=== PATIENT | female | born 1950 | race Caucasian/White ===

== ENCOUNTER 2021-03-23 09:51 | Outpatient (CLI) | payer MEDICARE, OTHER ==
[2021-03-23 15:31] LABS: CALCIUM 9.3 mg/dL (8.5-10.3); CREATININE 0.7 mg/dL (0.4-1.0); POTASSIUM 3.7 mmol/L (3.5-5.0)
== END 2021-03-23 09:52 | disposition home or self-care (01) ==
LOC: LAB.S 09:51
PROVIDERS: ATTEND Physician Assistant
DX: E87.1 Hypo-osmolality and hyponatremia (principal)
CPT/HCPCS: 36415; 80048

== ENCOUNTER 2021-06-10 07:50 | Day surgery (SDC) | payer MEDICARE, OTHER ==
[~2021-06-10 07:50] MED LIST: CYCLOPENTOLATE 1% OPHTH DROPS 2 ML ONE; KETOROLAC 0.45% OPHTH DROPS ONE; PHENYLEPHRINE 2.5% OPHTH 2 ML DROPS ONE; PROPARACAINE 0.5% OPHTH DROPS 15 ML ONE
[2021-06-10] MEDS ORDERED: LACTATED RINGERS 1,000 ML IV ONE ×2 (08:14→09:08)
[2021-06-10] MEDS ORDERED: MIDAZOLAM 2 MG/2 ML VIAL ONE (08:34)
[2021-06-10] MEDS ORDERED: fentaNYL 100 MCG/2 ML VIAL IVP PRN (08:42)
[2021-06-10] MEDS ORDERED: ePHEDrine 50 MG/ML VIAL IVP PRN (08:42)
[2021-06-10] MEDS ORDERED: ATROPINE ABBOJECT 1 MG/10 ML SYRINGE IVP PRN (08:42)
[2021-06-10] MEDS ORDERED: MORPHINE 2 MG/ML CARPUJECT IVP PRN (08:42)
[2021-06-10] MEDS ORDERED: HYDROmorphone 0.5 MG/0.5 ML SYRINGE IVP PRN (08:42)
[2021-06-10] MEDS ORDERED: NALOXONE 0.4 MG/ML VIAL IVP PRN (08:42)
[2021-06-10] MEDS ORDERED: ONDANSETRON 4 MG/2 ML VIAL IVP PRN (08:42)
[2021-06-10] MEDS ORDERED: METOCLOPRAMIDE 10 MG/2 ML VIAL IVP PRN (08:42)
--- NOTE | 2021-06-10 08:42 | ANESTHESIA ---
Pre-Anesthesia VS, & Labs - Diagnosis left eye cataract - Procedure left CATIOL Vital Signs: Temp Pulse Resp BP Pulse Ox 37.2 C 74 18 152/62 H 99 06/10/21 08:12 06/10/21 08:12 06/10/21 08:12 06/10/21 08:31 06/10/21 08:12 Height: 5 ft 2 in Weight (kg): 51 kg Body Mass Index: 20.5 BMI Classification: Healthy weight - NPO >8 hours - Is Patient ?: No - Lab Results Lab results reviewed: Yes Home Medications and Allergies Home Medications: Ambulatory Orders Atorvastatin [Lipitor] 20 mg PO DAILY 06/10/21 Atorvastatin [Lipitor] 20 mg PO DAILY 06/10/21 Allergies/Adverse Reactions: Allergies Allergy/AdvReac Type Severity Reaction Status Date / Time No Known Drug Allergies Allergy Verified 06/10/21 08:17 Anes History & Medical History - Anesthetic History Anesthesia Complications: reports: No previous complications Family history of Anesthesia Complications: Denies Family history of Malignant Hyperthermia: Denies - Medical History Cardiovascular: reports: None Pulmonary: reports: None Gastrointestinal: reports: None Urinary: reports: None Musculoskeletal: reports: None Endocrine/Autoimmune: reports: None Skin: reports: None - Surgical History Eyes Ears Nose Throat (EENT): reports: Tonsil/Adenoidectomy Gynecologic: reports: Other Exam General: Alert, Oriented x3, Cooperative, No acute distress Dental: WNL Mouth Openin Fingerbreadth Neck Mobility: Normal Mallampati classification: II Respiratory: Lungs clear, Normal breath sounds, No respiratory distress, No accessory muscle use Cardiovascular: Regular rate, Normal S1, Normal S2, No murmurs Plan Anesthesia Type: MAC Consent for Procedure(s) Verified and Reviewed: Yes Code Status: Attempt Resuscitation ASA classification: 2-Mild systemic disease Is this case an emergency?: No
[2021-06-10] MEDS ORDERED: TIMOLOL 0.5% OPHTH DROPS OPTH ONE (09:00)
[2021-06-10] MEDS ORDERED: TRIAMCIN/MOXIFLOX OPHTHALMIC 0.6 ML VIAL IO ONE ×2 (09:00→12:11)
[2021-06-10] MEDS ORDERED: BSS/LIDOCAINE/EPINEPHRINE 1 ML SYRINGE IO ONE (09:00)
[2021-06-10] MEDS ORDERED: VANCOMYCIN OPHTHALMI 8MG/0.8ML 8 MG/0.8 ML SYRINGE IO ONE ×2 (09:00→12:11)
[2021-06-10] MEDS ORDERED: EPINEPHrine 1 MG/ML AMP IR ONE (09:00)
[2021-06-10] MEDS ORDERED: BRIMONIDINE 0.2% OPHTH DROPS 5 ML OPTH ONE (09:00)
[2021-06-10] MEDS ORDERED: LACTATED RINGERS 1,000 ML IV SCH (09:00)
[2021-06-10] MEDS ORDERED: PROPARACAINE 0.5% OPHTH DROPS 15 ML EACHEYE ONE (09:00)
--- NOTE | 2021-06-10 09:14 | OPERATIVE REPORT ---
Operative Report - Other Other Information/Narrative: Date of Surgery: 06/10/21 Preop Dx: Visually significant cataract left eye. This was the first cataract surgery. Postop Dx: Same Procedure: Phacoemulsification with posterior chamber intraocular lens implant left eye Surgeon: Dr. Wilfredo Knight Anesthesia: Monitored anesthesia care Complications: None Operative Indications: This is a 70-year-old F with progressive vision loss in the left eye due to 2+ nuclear sclerotic, 1+ cortical, and vacuolar cataract. Best corrected visual acuity was 20/40 with glare to 20/300 vision in the left eye. Indications for surgery were: - Difficulty seeing words, closed captions, or game scores on TV - Difficulty driving at night because of headlights from other vehicles - Difficulty with glare or bright lights in any situation The patient was consented at length concerning the risks and benefits of cataract surgery after which the patient expressed a desire to proceed with surgery. Operative Procedure: The patient was taken into OR#3 and placed under monitored anesthesia care. A surgical time-out was conducted confirming correct patient, correct procedure, and correct surgical site. The patient was given topical anesthesia and then prepped and draped in the usual sterile fashion. The eye was entered at the 6 and 3 oclock positions. Intracameral Shugarcaine was injected into the anterior chamber followed by a dispersive viscoelastic. A continuous-tear curvilinear capsulorhexis was performed. The nucleus was hydrodissected and phacoemulsified. The cortex was evacuated using automated infusion and aspiration. A cohesive viscoelastic was injected into the capsular bag and a 19.5 diopter intraocular lens was inserted into the bag. Infusion and aspiration were used to evacuate the viscoelastic materials from the eye. The wounds were hydrated and the eye inflated to physiologic pressure using balanced salt solution. Approximately 0.25ml of a mixture of triamcinolone and moxifloxacin was injected trans-sclerally into the vitreous in the inferotemporal quadrant using a 30 gauge cannula. An additional 0.55ml of a mixture of triamcinolone, moxifloxacin, and vancomycin was injected subconjunctivally in the superior quadrant for infection and inflammation prophylaxis. Wound integrity was checked with Weck-Tianna sponges. The patient was taken from the operating room in good condition and given post-op instructions.
[2021-06-10 09:29] VITALS: BP 149/73
--- NOTE | 2021-06-10 11:21 | ANESTHESIA POST OP EVALUATION ---
Anesthesia Post Eval - Post Anesthesia Eval Vitals: Last Vital Signs Temp 36.5 C 06/10/21 09:28 Pulse 77 06/10/21 09:28 Resp 16 06/10/21 09:28 BP 149/73 H 06/10/21 09:28 Pulse Ox 97 06/10/21 09:28 CV Function Including HR & BP: Stable Pain Control: Satisfactory Nausea & Vomiting: Negative Mental Status: Baseline Respiratory Status: Airway Patent Hydration Status: Satisfactory Anesthesia Complications: None
[2021-06-10] MEDS ORDERED: TIMOLOL 0.5% OPHTH DROPS ONE (12:11)
[2021-06-10] MEDS ORDERED: BRIMONIDINE 0.2% OPHTH DROPS 5 ML ONE (12:11)
[2021-06-10] MEDS ORDERED: EPINEPHrine 1 MG/ML AMP ONE (12:11)
[2021-06-10] MEDS ORDERED: BSS/LIDOCAINE/EPINEPHRINE 1 ML SYRINGE ONE (12:11)
== END 2021-06-10 07:51 | disposition home or self-care (01) ==
LOC: SDS 07:50
PROVIDERS: ATTEND Ophthalmology
DX: H25.812 Combined forms of age-related cataract, left eye (principal); F17.200 Nicotine dependence, unspecified, uncomplicated; H91.90 Unspecified hearing loss, unspecified ear; Z79.82 Long term (current) use of aspirin; Z79.899 Other long term (current) drug therapy
CPT/HCPCS: 66984; A9270; J3490; J7120

== ENCOUNTER 2021-06-25 11:14 | Outpatient (CLI) | payer MEDICARE, OTHER ==
[2021-06-25 15:27] LABS: BASOPHILS % (AUTO) 0.5 %; EOSINOPHILS # (AUTO) 0.2 10^3/uL (0.0-0.7); EOSINOPHILS % (AUTO) 2.6 %; HCT - HEMATOCRIT 40.5 % (37.0-47.0); HGB - HEMOGLOBIN 14.2 g/dL (12.0-16.0); LYMPHOCYTES # (AUTO) 1.9 10^3/uL (1.5-3.5); LYMPHOCYTES % (AUTO) 23.8 %; MEAN CORPUSCULAR HEMOGLOBIN 33.3 pg (27.0-31.0); MEAN CORPUSCULAR HGB CONC 35.1 g/dL (32.0-36.0); MEAN CORPUSCULAR VOLUME 94.8 fL (81.0-99.0); MEAN PLATELET VOLUME 8.1 fL (7.9-10.8); MONOCYTES # (AUTO) 0.5 10^3/uL (0.0-1.0); MONOCYTES % (AUTO) 6.6 %; NEUTROPHILS # (AUTO) 5.4 10^3/uL (1.5-6.6); NEUTROPHILS % (AUTO) 66.3 %; PLT - PLATELET COUNT 524 10^3/uL (130-450); RED BLOOD COUNT 4.27 10^6/uL (4.20-5.40); RED CELL DISTRIBUTION WIDTH 12.9 % (12.0-15.0); WHITE BLOOD COUNT 8.2 x10^3/uL (4.8-10.8)
[2021-06-25 15:47] LABS: ALBUMIN 4.2 g/dL (3.2-5.5); ALBUMIN/GLOBULIN RATIO 1.3 (1.0-2.2); BILIRUBIN,TOTAL 0.6 mg/dL (0.2-1.0); CALCIUM 9.3 mg/dL (8.5-10.3); CREATININE 0.6 mg/dL (0.4-1.0); POTASSIUM 4.4 mmol/L (3.5-5.0); TOTAL PROTEIN 7.5 g/dL (6.7-8.2)
[2021-06-25 16:01] LABS: THYROID STIMULATING HORMONE 1.05 uIU/mL (0.34-5.60)
== END 2021-06-25 11:15 | disposition home or self-care (01) ==
LOC: LAB.S 11:14
PROVIDERS: ATTEND Physician Assistant
DX: L65.9 Nonscarring hair loss, unspecified (principal); R25.1 Tremor, unspecified; Z72.89 Other problems related to lifestyle
CPT/HCPCS: 36415; 80053; 84443; 85025

== ENCOUNTER 2021-07-08 08:40 | Day surgery (SDC) | payer MEDICARE, OTHER ==
[2021-07-08] MEDS ORDERED: LACTATED RINGERS 1,000 ML IV ONE ×2 (08:49→10:36)
--- NOTE | 2021-07-08 09:40 | ANESTHESIA ---
Pre-Anesthesia VS, & Labs - Diagnosis R cataract - Procedure R PhacoIOL Vital Signs: Temp Pulse Resp BP Pulse Ox 36.6 C 83 16 153/76 H 100 07/08/21 08:53 07/08/21 08:53 07/08/21 08:53 07/08/21 08:53 07/08/21 08:53 Height: 5 ft 2 in Weight (kg): 51.2 kg Body Mass Index: 20.6 BMI Classification: Healthy weight - NPO >8 hours - Is Patient ?: No Home Medications and Allergies Atorvastatin [Lipitor] 20 mg PO DAILY 06/10/21 Allergies/Adverse Reactions: Allergies Allergy/AdvReac Type Severity Reaction Status Date / Time No Known Drug Allergies Allergy Verified 06/10/21 08:17 Anes History & Medical History - Anesthetic History Anesthesia Complications: reports: No previous complications Family history of Anesthesia Complications: Denies Family history of Malignant Hyperthermia: Denies - Medical History Cardiovascular: reports: None Pulmonary: reports: None Gastrointestinal: reports: None Urinary: reports: None Musculoskeletal: reports: None Endocrine/Autoimmune: reports: None Skin: reports: None - Surgical History Eyes Ears Nose Throat (EENT): reports: Cataracts, Tonsil/Adenoidectomy Gynecologic: reports: Other Exam General: Alert, Oriented x3, Cooperative Dental: WNL Mouth Openin Fingerbreadth Neck Mobility: Normal Mallampati classification: II Thyromental Distance: 4-6 cm Respiratory: Lungs clear Cardiovascular: Regular rate Plan Anesthesia Type: MAC Consent for Procedure(s) Verified and Reviewed: Yes Code Status: Attempt Resuscitation ASA classification: 2-Mild systemic disease Is this case an emergency?: No
[2021-07-08] MEDS ORDERED: fentaNYL 100 MCG/2 ML VIAL ONE (09:50)
[2021-07-08] MEDS ORDERED: MIDAZOLAM 2 MG/2 ML VIAL ONE (09:50)
[2021-07-08] MEDS ORDERED: EPINEPHrine 1 MG/ML AMP IR ONE (10:17)
[2021-07-08] MEDS ORDERED: BRIMONIDINE 0.2% OPHTH DROPS 5 ML OPTH ONE (10:17)
[2021-07-08] MEDS ORDERED: TIMOLOL 0.5% OPHTH DROPS OPTH ONE (10:17)
[2021-07-08] MEDS ORDERED: PROPARACAINE 0.5% OPHTH DROPS 15 ML EACHEYE ONE (10:18)
[2021-07-08] MEDS ORDERED: BSS/LIDOCAINE/EPINEPHRINE 1 ML SYRINGE IO ONE (10:18)
[2021-07-08] MEDS ORDERED: TRIAMCIN/MOXIFLOX OPHTHALMIC 0.6 ML VIAL IO ONE ×2 (10:18→12:54)
--- NOTE | 2021-07-08 10:35 | OPERATIVE REPORT ---
Operative Report - Other Other Information/Narrative: Date of Surgery: 07/08/21 Preop Dx: Visually significant cataract right eye. Cataract surgery was performed in the left eye on . Postop Dx: Same Procedure: Phacoemulsification with posterior chamber intraocular lens implant right eye Surgeon: Dr. Wilfredo Knight Anesthesia: Monitored anesthesia care Complications: None Operative Indications: This is a 70-year-old F with progressive vision loss in the right eye due to 2+ nuclear sclerotic and vacuolar cataract. Best corrected visual acuity was 20/30 with glare to 20/100 vision in the right eye. Indications for surgery were: - Difficulty seeing words, closed captions, or game scores on TV - Difficulty seeing street signs - Difficulty driving in low light or at night - Difficulty driving at night because of headlights from other vehicles The patient was consented at length concerning the risks and benefits of cataract surgery after which the patient expressed a desire to proceed with surgery. Operative Procedure: The patient was taken into OR#3 and placed under monitored anesthesia care. A surgical time-out was conducted confirming correct patient, correct procedure, and correct surgical site. The patient was given topical anesthesia and then prepped and draped in the usual sterile fashion. The eye was entered at the 6 and 3 oclock positions. Intracameral Shugarcaine was injected into the anterior chamber followed by a dispersive viscoelastic. A continuous-tear curvilinear capsulorhexis was performed. The nucleus was hydrodissected and phacoemulsified. The cortex was evacuated using automated infusion and aspiration. A cohesive viscoelastic was injected into the capsular bag and a 21.5 diopter intraocular lens was inserted into the bag. Infusion and aspiration were used to evacuate the viscoelastic materials from the eye. The wounds were hydrated and the eye inflated to physiologic pressure using balanced salt solution. Approximately 0.25ml of a mixture of triamcinolone and moxifloxacin was injected trans-sclerally into the vitreous in the inferotemporal quadrant using a 30 gauge cannula. An additional 0.55ml of a mixture of triamcinolone and moxifloxacin was injected subconjunctivally in the superior quadrant for infection and inflammation prophylaxis. Wound integrity was checked with Weck-Tianna sponges. The patient was taken from the operating room in good condition and given post-op instructions.
[2021-07-08 11:33] VITALS: BP 118/74
[2021-07-08] MEDS ORDERED: TIMOLOL 0.5% OPHTH DROPS ONE (12:55)
[2021-07-08] MEDS ORDERED: BRIMONIDINE 0.2% OPHTH DROPS 5 ML ONE (12:55)
== END 2021-07-08 08:41 | disposition home or self-care (01) ==
LOC: SDS 08:40
PROVIDERS: ATTEND Ophthalmology
DX: H25.811 Combined forms of age-related cataract, right eye (principal); Z98.42 Cataract extraction status, left eye; F17.210 Nicotine dependence, cigarettes, uncomplicated
CPT/HCPCS: 66984; A9270; J3490; J7120

== ENCOUNTER 2021-09-26 20:21 | Outpatient (CLI) | payer MEDICARE, OTHER | END 2021-09-26 20:22 | disposition critical access hospital (66) | LOC: EMS 20:21 | DX: R42 Dizziness and giddiness (principal); R14.0 Abdominal distension (gaseous); R23.1 Pallor; R11.10 Vomiting, unspecified; R19.5 Other fecal abnormalities | CPT/HCPCS: A0425; A0427 ==

== ENCOUNTER 2021-09-26 20:49 | Inpatient (IN) | payer MEDICARE, OTHER ==
[2021-09-26 21:15] LABS: BASOPHILS % (AUTO) 0.3 %; EOSINOPHILS # (AUTO) 0.1 10^3/uL (0.0-0.7); EOSINOPHILS % (AUTO) 0.4 %; HCT - HEMATOCRIT 30.5 % (37.0-47.0); HGB - HEMOGLOBIN 10.4 g/dL (12.0-16.0); LYMPHOCYTES # (AUTO) 1.6 10^3/uL (1.5-3.5); LYMPHOCYTES % (AUTO) 13.7 %; MEAN CORPUSCULAR HEMOGLOBIN 32.4 pg (27.0-31.0); MEAN CORPUSCULAR HGB CONC 34.1 g/dL (32.0-36.0); MEAN PLATELET VOLUME 7.7 fL (7.9-10.8); MONOCYTES # (AUTO) 0.5 10^3/uL (0.0-1.0); MONOCYTES % (AUTO) 4.5 %; NEUTROPHILS # (AUTO) 9.6 10^3/uL (1.5-6.6); NEUTROPHILS % (AUTO) 80.7 %; PLT - PLATELET COUNT 392 10^3/uL (130-450); RED BLOOD COUNT 3.21 10^6/uL (4.20-5.40); WHITE BLOOD COUNT 11.9 x10^3/uL (4.8-10.8)
--- NOTE | 2021-09-26 21:16 | ED Physician Documentation ---
History of Present Illness - Stated complaint Stated Complaint: HYPOTENSION, DIZZY - Chief complaint Chief Complaint: General - History obtained from History obtained from: Patient, EMS - Additonal information Additional information: Patient presenting for evaluation of feeling dizzy/lightheaded starting at this evening around 1830 particularly with standing.She had one episode of emesis and believes that she vomited coffee. She self reports a long history of drinking a significant amount of coffee. She states her stools have been dark for a long time and also attributes this to coffee drinking as well as eating chili recently. She denies abdominal pain, melanotic stools, does not take any anticoagulants. She does drink approximately 1 box of wine per week and smokes 1 pack of cigarettes per day. She denies previous history of colonoscopy Or EGD and states she took the at home stool test recently which did not show blood in her stools. Upon EMS arrival, patient was noted to be hypotensive in the 70s and feeling lightheaded. She did receive 500 cc of IV fluids prior to arrival. She currently has no complaints.She denies headache, syncope, trauma, chest pain, cough, difficulty breathing Or recent diarrhea. Review of Systems Constitutional: denies: Fever Nose: denies: Congestion Cardiac: denies: Chest pain / pressure Respiratory: denies: Dyspnea, Cough GI: reports: Vomiting. denies: Abdominal Pain, Constipation, Diarrhea : denies: Dysuria Neurologic: reports: Near syncope. 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 HEENT: Cataracts, Tonsil/Adenoidectomy - Present Medications Home Medications: Ambulatory Orders Medication Instructions Recorded Confirmed Atorvastatin [Lipitor] 20 mg PO DAILY 06/10/21 06/10/21 - Allergies Allergies/Adverse Reactions: Allergies Allergy/AdvReac Type Severity Reaction Status Date / Time No Known Drug Allergies Allergy Verified 09/26/21 21:00 PD ED PE NORMAL - General General: Alert and oriented X 3, No acute distress, Well developed/nourished - HEENT HEENT: Atraumatic, Other (Dried brown emesis around mouth) - Rectal Rectal: Other (Dark brown stool, normal tone, no masses or hemorrhoids) Results - Vitals Vitals: Vital Signs - 24 hr 09/26/21 09/26/21 20:54 22:22 Temperature 36.3 C L Heart Rate 108 H Heart Rate [ 113 H Sitting] Heart Rate [ 131 H Standing] Heart Rate [ 112 H Supine] Respiratory 20 Rate Blood Pressure 133/69 H Blood Pressure 134/76 H [Sitting] Blood Pressure 112/60 [Standing] Blood Pressure 136/73 H [Supine] O2 Saturation 100 Oxygen O2 Source Room air - Labs Labs: Microbiology 09/26/21 21:45 Occult Blood - Final Stool Laboratory Tests 09/26/21 09/26/21 09/26/21 21:03 21:03 21:03 WBC 11.9 H RBC 3.21 L Hgb 10.4 L Hct 30.5 L MCV 95.0 MCH 32.4 H MCHC 34.1 RDW 13.0 Plt Count 392 MPV 7.7 L Neut # (Auto) 9.6 H Lymph # (Auto) 1.6 Delta # (Auto) 0.5 Eos # (Auto) 0.1 Baso # (Auto) 0.0 Absolute Nucleated RBC 0.00 Nucleated RBC % 0.0 PT 12.6 INR 1.1 Sodium Potassium Chloride Carbon Dioxide Anion Gap BUN Creatinine Estimated GFR (MDRD) Glucose Calcium Iron TIBC % Saturation Transferrin Ferritin Total Bilirubin AST ALT Alkaline Phosphatase Troponin I High Sens Total Protein Albumin Globulin Albumin/Globulin Ratio Lipase Vitamin B12 Folate Blood Type A NEGATIVE Antibody Screen NEGATIVE 09/26/21 09/26/21 09/26/21 21:03 21:03 21:03 WBC RBC Hgb Hct MCV MCH MCHC RDW Plt Count MPV Neut # (Auto) Lymph # (Auto) Delta # (Auto) Eos # (Auto) Baso # (Auto) Absolute Nucleated RBC Nucleated RBC % PT INR Sodium 133 L Potassium 4.1 Chloride 99 L Carbon Dioxide 23 Anion Gap 11.0 BUN 37 H Creatinine 0.6 Estimated GFR (MDRD) 99 Glucose 148 H Calcium 8.3 L Iron 125 TIBC 308 % Saturation 41 Transferrin 220 Ferritin Total Bilirubin 0.7 AST 18 ALT 18 Alkaline Phosphatase 79 Troponin I High Sens 6.4 Total Protein 6.1 L Albumin 3.6 Globulin 2.5 Albumin/Globulin Ratio 1.4 Lipase 48 Vitamin B12 Folate Blood Type Antibody Screen 09/26/21 21:03 WBC RBC Hgb Hct MCV MCH MCHC RDW Plt Count MPV Neut # (Auto) Lymph # (Auto) Delta # (Auto) Eos # (Auto) Baso # (Auto) Absolute Nucleated RBC Nucleated RBC % PT INR Sodium Potassium Chloride Carbon Dioxide Anion Gap BUN Creatinine Estimated GFR (MDRD) Glucose Calcium Iron TIBC % Saturation Transferrin Ferritin 41.6 Total Bilirubin AST ALT Alkaline Phosphatase Troponin I High Sens Total Protein Albumin Globulin Albumin/Globulin Ratio Lipase Vitamin B12 594 Folate 6.52 Blood Type Antibody Screen PD MEDICAL DECISION MAKING - ED course ED course: Patient with near syncope presenting for evaluation in the setting of dark stools. Patient describes having dark schools for a long time. Her HemoccultIs negative. However, Hemoglobin is 10.4, most recently was 14 in June 2021. Given her exam I still have some concerns that she could be having a GI bleed. She remains orthostatic although less symptomatic after IV fluids. Patient has no abdominal tenderness. Discussed with hospitalist who agrees to keep the patient overnight for observation, plan for continued IV fluids And trending of her hemoglobin. Departure - Departure Disposition: ED Place in Observation Clinical Impression: Near syncope, Orthostatic lightheadedness, Sinus tachycardia Anemia Qualifiers: Anemia type: unspecified type Qualified Code(s): D64.9 - Anemia, unspecified Condition: Stable Discharge Date/Time: 09/27/21 00:14
[2021-09-26 21:21] LABS: INR 1.1 (0.8-1.2); PT - PROTHROMBIN TIME 12.6 secs (9.9-12.6)
[2021-09-26 21:27] LABS: ALBUMIN 3.6 g/dL (3.2-5.5); ALBUMIN/GLOBULIN RATIO 1.4 (1.0-2.2); BILIRUBIN,TOTAL 0.7 mg/dL (0.2-1.0); CALCIUM 8.3 mg/dL (8.5-10.3); CREATININE 0.6 mg/dL (0.4-1.0); POTASSIUM 4.1 mmol/L (3.5-5.0); TOTAL PROTEIN 6.1 g/dL (6.7-8.2)
[2021-09-26] MEDS ORDERED: SODIUM CHLORIDE 0.9% 1,000 ML IV STA (21:46)
[2021-09-26] MEDS ORDERED: PANTOPRAZOLE 40 MG VIAL IVP STA (21:53)
[2021-09-26] MEDS ORDERED: ACETAMINOPHEN 325 MG TABLET PO PRN (23:01)
[2021-09-26] MEDS ORDERED: ONDANSETRON ODT 4 MG TABLET TL PRN (23:01)
[2021-09-26] MEDS ORDERED: ONDANSETRON 4 MG/2 ML VIAL IVP PRN (23:01)
[2021-09-26] MEDS: SODIUM CHLORIDE FLUSH 0.9% 10 ML SYRINGE IVP SCH (23:13)
[2021-09-26] MEDS: LACTATED RINGERS 1,000 ML IV SCH (23:13)
[2021-09-26 23:40] LABS: % IRON SATURATION 41 % (20-50); IRON 125 ug/dL (28-170); TOTAL IRON BINDING CAPACITY 308 ug/dL (250-450); TRANSFERRIN 220 mg/dL (192-382)
--- NOTE | 2021-09-26 23:55 | HISTORY & PHYSICAL EXAMINATION ---
Chief Complaint - Chief Complaint Chief Complaint: Dizziness. History of Present Illness - Admitted From Admitted From:: Home - History Obtained From Records Reviewed: [facility] History obtained from: Patient, ER Physician, EMR - History of Present Illness HPI Comment/Other: This is a 70-year-old female with a past medical history significant for hyp erlipidemia who presents today complaining of dizziness and lightheadedness. She states that around 4 PM she started to develop abdominal gas. She went to go lay down on her bed and when she got up she felt quite dizzy and lightheaded so she returned again to her bed. She was then able to get up and go down to her living room but she continued to feel the dizziness and lightheadedness when sitting and so she called EMS. She states she felt faint at one point but was able to slowly get herself to her bed. She denies any syncope, chest pain, palpitations, dyspnea. She denies any similar episodes in the past. She does report that her noted that she vomited dark emesis prior to EMS arrival which he thought was blood. She believes it just may have been the coffee she was drinking earlier on the day. She states she normally drinks anywhere from 4 to 6 cups of coffee a day. Her last drink was 4 PM. She denies any history of bleeding in the past but reports that her stool is dark at times which she attributes to the chili and coffee she eats. She does drink 2 to 3 glasses of wine a day. She also takes a baby aspirin a day. She reports no cardiac history in the past including coronary artery disease, heart failure, or arrhythmia. She believes her primary care physician may have mentioned in the past that she is tachycardic at times but this was attributed to anxiety related to an office visit. She currently feels back to her baseline and denies any dizziness or lightheadedness. She has never had an endoscopy or colonoscopy. Here in our emergency department, she was given a liter of IV fluids as well as Protonix. She is noted to be anemic with a hemoglobin of 10 compared to her baseline of 14. Her stool was negative for occult blood but there was still clinical concern for emesis given the history and the fact that her mouth has what appears to be evidence of old blood. She was also noted to be orthostatic and persistently tachycardic in the 110s. Given the above findings, medicine was consulted for admission. We discussed goals of care and she would like to be a DNR. History - Past Medical History Cardiovascular: reports: High cholesterol Respiratory: reports: None Endocrine/Autoimmune: reports: None GI: reports: None : reports: None HEENT: reports: Chronic vision loss Psych: reports: None Musculoskeletal: reports: None Derm: reports: None MRSA Hx?: No - Past Surgical History HEENT: reports: Cataracts, Tonsil/Adenoidectomy - Family & Social History Family History Comment/Other: Her mother had a history of gestational diabetes. Her father had a history of coronary artery disease and underwent a CABG. Living arrangement: At home Living Situation: With spouse/s.o. Social History Notes: She lives at home with her spouse. She smokes a pack a day and has been doing so for 50 years. She drinks 2 to 3 glasses of wine each day. Meds/Allgy - Home Medications Home Medications: Ambulatory Orders Medication Instructions Recorded Confirmed Atorvastatin [Lipitor] 20 mg PO QPM 06/10/21 09/27/21 Aspirin Chewable [St Hever 81 mg PO DAILY 09/27/21 09/27/21 Aspirin] Cholecalciferol [Vitamin D3] 125 mcg PO DAILY 09/27/21 09/27/21 Dike's Wort 300 mg PO DAILY 09/27/21 09/27/21 Vit C/E/Zn/Coppr/Lutein/Zeaxan 1 each PO DAILY 09/27/21 09/27/21 [Preservision Areds 2 Chew Tab] - Allergies Allergies/Adverse Reactions: Allergies Allergy/AdvReac Type Severity Reaction Status Date / Time No Known Drug Allergies Allergy Verified 09/26/21 21:00 Review of Systems - Constitutional Constitutional: denies: Fatigue, Fever, Chills - Cardiovascular Cariovascular: reports: Lightheadedness. denies: Palpitations, Chest pain, Edema, Syncope, Exertional dyspnea, Decr. exercise tolerance - Respiratory Respiratory: denies: Cough, SOB at rest, SOB with exertion - Gastrointestinal Gastrointestinal: reports: Black stools, Coffee grounds emesis. denies: Abdominal pain, Diarrhea, Change in bowel habits, Bloody stools, Nausea, Vomiting, Prince blood emesis, Poor appetite - Genitourinary Genitourinary: denies: Dysuria, Frequency, Urgency, Hematuria - Integumentary Integumentary: denies: Rash - Neurological Neurological: reports: Dizziness. denies: General weakness, Focal weakness - Hematologic/Lymphatic Hematologic/Lymphatic: denies: Anemia, Bruising, Bleeding tendencies - All Other Systems All Other Systems: reports: Reviewed and negative Prior Level of Functionality: She is independent with her ADLs. Exam - Vital Signs Reviewed Vital Signs: Yes Vital Signs: Vital Signs x48h Temp Pulse Pulse Pulse Pulse Resp BP 09/26/21 23:25 119 H 16 132/73 H 09/26/21 22:22 113 H 131 H 112 H 09/26/21 20:54 36.3 C L 108 H 20 133/69 H BP BP BP Pulse Ox 09/26/21 23:25 100 09/26/21 22:22 134/76 H 112/60 136/73 H 09/26/21 20:54 100 - Physical Exam General Appearance: positive: No acute distress, Alert Eyes Bilateral: positive: Normal inspection, Conjunctivae nml ENT: positive: Dry mucous membranes, Other (Dry dark emesis around oral mucosa and tongue.). negative: No signs of dehydration Neck: positive: Nml inspection Respiratory: positive: No respiratory distress. negative: Wheezes, Rales Cardiovascular: positive: Tachycardia, Other (Pectus carinatum noted.). negative: Irregularly irregular, Systolic murmur Abdomen: positive: Non-tender, No distention. negative: Tenderness Skin: positive: Warm, Dry Extremities: positive: Full ROM, No pedal edema Neurologic/Psychiatric: positive: Motor nml. negative: Disoriented to person, Disoriented to place, Disoriented to time Conclusion/Plan - Problem List (1) GI bleed Conclusion/Plan: The concern is for a GI bleed given her history of emesis and the fact that her reported it was quite dark. She is on aspirin and does drink alcohol on a daily basis. Her BUN is slightly increased as well. Her stool was negative for occult blood but this does not rule out a bleed. She is also anemic compared to just 3 months ago[address] We will place her in observation recheck hemoglobin in the morning. We will place her on PPI empirically. We will check her stool again for occult blood. Type and screen. If there continues to be suspicion for GI bleed we will consult general surgery for EGD. (2) Anemia Conclusion/Plan: She is anemic compared to 3 months ago and the concern is that this may be due to a GI bleed. We will check iron study as well as B12 and folate. Recheck hemoglobin in the morning. SCDs for DVT prophylaxis. Qualifiers: Anemia type: unspecified type Qualified Code(s): D64.9 - Anemia, unspecified (3) Orthostatic hypotension Conclusion/Plan: She remains orthostatic although her symptoms have improved. Suspect related to hypovolemia or GI bleed. We will give another liter of lactated Ringer's and continue her on maintenance IV fluids. Repeat hemoglobin in the morning. Check orthostatics with each shift. Monitor on telemetry. I have ordered an echocardiogram for the morning. Also check a.m. cortisol. (4) Sinus tachycardia Conclusion/Plan: Suspect this is related to hypovolemia or GI bleed. She may tachycardic in the 110s. She had her thyroid checked 2 months ago and states this within normal limits we will hold off on checking a TSH. We will continue to hydrate her with IV fluids and work-up suspect the bleed as mentioned above. Echocardiogram in the morning. Monitor on telemetry. - Lab Results Lab results reviewed: Yes Fish Bones: 09/27/21 16:00 09/27/21 04:42 - EKG Results EKG Interpreted Independently: Yes EKG Findings: EKG reveals sinus tachycardia without evidence of ischemia. Core Measures - Anticipated LOS I expect patient to be DC'd or transferred within 96 hours.: Yes - Issues Hospital Issues and Management Plan: 70-year-old female presents with dizziness lightheadedness found to be anemic and orthostatic with concern for possible GI bleed. Will place in observation for trending of hemoglobin, IV fluids, echo. - DVT/VTE - Prophylaxis VTE/DVT Device ordered at admit?: Yes VTE/DVT Prophylaxis med ordered at admit?: No Not Ordered - Medical Reason: Contraindicated
[2021-09-26 23:57] LABS: FERRITIN 41.6 ng/mL (11.0-306.8)
[2021-09-27 00:01] LABS: FOLATE 6.52 ng/mL (5.90 - >24.8)
[2021-09-27] MEDS ORDERED: LACTATED RINGERS 1,000 ML IV ONE (00:13)
[2021-09-27 05:16] LABS: BASOPHILS % (AUTO) 0.3 %; EOSINOPHILS % (AUTO) 0.1 %; HCT - HEMATOCRIT 23.5 % (37.0-47.0); HGB - HEMOGLOBIN 8.2 g/dL (12.0-16.0); LYMPHOCYTES # (AUTO) 1.9 10^3/uL (1.5-3.5); MEAN CORPUSCULAR HGB CONC 34.9 g/dL (32.0-36.0); MEAN CORPUSCULAR VOLUME 91.8 fL (81.0-99.0); MEAN PLATELET VOLUME 8.1 fL (7.9-10.8); MONOCYTES # (AUTO) 0.8 10^3/uL (0.0-1.0); MONOCYTES % (AUTO) 5.5 %; NEUTROPHILS % (AUTO) 79.7 %; PLT - PLATELET COUNT 343 10^3/uL (130-450); RED BLOOD COUNT 2.56 10^6/uL (4.20-5.40); RED CELL DISTRIBUTION WIDTH 12.9 % (12.0-15.0); WHITE BLOOD COUNT 13.7 x10^3/uL (4.8-10.8)
[2021-09-27 05:25] LABS: CALCIUM 7.8 mg/dL (8.5-10.3); CREATININE 0.5 mg/dL (0.4-1.0); POTASSIUM 3.6 mmol/L (3.5-5.0)
[2021-09-27] MEDS: PANTOPRAZOLE 40 MG VIAL IVP SCH ×2 (08:57→20:59)
[2021-09-27] MEDS: SODIUM CHLORIDE FLUSH 0.9% 10 ML SYRINGE IVP SCH ×2 (08:57→15:58)
[2021-09-27] MEDS: THIAMINE 100 MG TABLET PO SCH (08:58)
--- NOTE | 2021-09-27 09:13 | CONSULTATION NOTE ---
Referring Provider Name of Referring Provider:: Yousef Chief Complaint - Chief Complaint Chief Complaint: Coffee ground emesis History of Present Illness - Admitted From Admitted From:: ED - History of Present Illness HPI Comment/Other: 70F who presented with an episode of coffee ground emesis yesterday evening, followed by feeling lightheaded. She was otherwise feeling well and denies nausea, anorexia, constipation, or diarrhea. She has had a couple of dark stools. No alleviating or aggravating factors. She has occasional heartburn for which she takes an antacid when needed. She takes a daily baby aspirin and [place] Wort, as well as statin and some other vitamins/supplements. No past episodes of GI bleed. No past endoscopy or colonoscopy, and is not interested in colon cancer screening. History - Past Medical History Cardiovascular: reports: None Respiratory: reports: None Neuro: reports: None Endocrine/Autoimmune: reports: None GI: reports: Other (Occasional "gassiness" for which she takes an antacid) : reports: None HEENT: reports: Chronic vision loss Psych: reports: None Musculoskeletal: reports: None Derm: reports: None MRSA Hx?: No Other Past Medical History: BRIDGE THAT DOES NOT COME OUT, CROWNS - Past Surgical History HEENT: reports: Cataracts, Tonsil/Adenoidectomy - Family & Social History Family History Comment/Other: Her mother had a history of gestational diabetes. Her father had a history of coronary artery disease and underwent a CABG. Living arrangement: At home Living Situation: With spouse/s.o. 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 She smokes a pack a day and has been doing so for 50 years. She drinks 2 to 3 glasses of wine each day. Meds/Allgy - Home Medications Home Medications: Ambulatory Orders Medication Instructions Recorded Confirmed Atorvastatin [Lipitor] 20 mg PO DAILY 06/10/21 06/10/21 - Allergies Allergies/Adverse Reactions: Allergies Allergy/AdvReac Type Severity Reaction Status Date / Time No Known Drug Allergies Allergy Verified 09/26/21 21:00 Review of Systems - Genitourinary Genitourinary: reports: Other (Dark stools, coffee ground emesis) - All Other Systems All Other Systems: reports: Reviewed and negative Exam - Vital Signs Reviewed Vital Signs: Yes Vital Signs: Vital Signs x48h Temp Pulse Resp BP BP Pulse Ox 09/27/21 07:36 36.9 C 102 H 16 153/62 H 98 09/27/21 05:45 37.2 C 94 16 124/65 97 - Physical Exam General Appearance: positive: No acute distress Eyes Bilateral: positive: Normal inspection ENT: positive: ENT inspection nml Neck: positive: Nml inspection Respiratory: positive: No respiratory distress Cardiovascular: positive: Other (Pulse fast and regular, no pitting edema) Abdomen: positive: Non-tender Rectal: positive: Other (Dried old blood at anal verge, no visible lesions, masses or hemorrhoids. MINAL deferred.) Skin: positive: Color nml Extremities: positive: Non-tender, Full ROM Neurologic/Psychiatric: positive: Oriented x3 Conclusion/Plan - Problem List (1) GI bleed Conclusion/Plan: 70F with coffee ground emesis and dark stools, and acute blood loss anemia with Hgb 10 to 8. Continue PPI BID IV IVF resuscitation 2 large bore IVs Blood on hold CBC check every 6 hours Transfuse blood to goal Hgb 7.0 Hold ASA EGD today, consented and added on James Caldwell MD - Lab Results Lab results reviewed: Yes Fish Bones: 09/27/21 04:42 09/27/21 04:42
--- NOTE | 2021-09-27 10:34 | PHARMACY PROGRESS NOTE ---
- Best Possible Medication History Admit Date and Time: 09/26/21 2302 Processed by: Pharmacy Medication History completed: Yes Patient Interview: Completed Secondary Source(s): Pharmacy records, Insurance records As the person ultimately responsible for medication therapy, providers are able to order a medication from an existing home medication list in [facility] via the "Reconcile Routine" prior to Confirmation of that medication by technical sales support specialist. Such practice is discouraged except when the physician, in their clinical judgment, deems that a medical need exists for a medication without regard to previous use.
[2021-09-27 11:18] LABS: HCT - HEMATOCRIT 22.2 % (37.0-47.0)
[2021-09-27] MEDS: LACTATED RINGERS 1,000 ML IV SCH (11:27)
--- NOTE | 2021-09-27 13:52 | ANESTHESIA ---
Pre-Anesthesia VS, & Labs - Diagnosis anemia, dizzy, GI bleed - Procedure EGD Vital Signs: Temp Pulse Resp BP Pulse Ox 36.8 C 116 H 16 138/65 H 100 09/27/21 12:51 09/27/21 12:51 09/27/21 12:51 09/27/21 12:51 09/27/21 12:51 Height: 5 ft 2 in Weight (kg): 50.5 kg Body Mass Index: 20.3 BMI Classification: Healthy weight - NPO >8 hours Last Fluid Intake: sips at noon for dry mout - Is Patient ?: No - Lab Results Current Lab Results: Laboratory Tests 09/27/21 11:14: Hgb 8.0 L, Hct 22.2 L 09/27/21 04:42: Cortisol AM Sample 11.3 09/27/21 04:42: Sodium 129 L, Potassium 3.6, Chloride 99 L, Carbon Dioxide 22, Anion Gap 8.0, BUN 26 H, Creatinine 0.5, Estimated GFR (MDRD) 122, Glucose 95, Calcium 7.8 L 09/27/21 04:42: WBC 13.7 H, RBC 2.56 L, Hgb 8.2 L, Hct 23.5 L, MCV 91.8, MCH 32.0 H, MCHC 34.9, RDW 12.9, Plt Count 343, MPV 8.1, Neut # (Auto) 11.0 H, Lymph # (Auto) 1.9, [place] # (Auto) 0.8, Eos # (Auto) 0.0, Baso # (Auto) 0.0, Absolute Nucleated RBC 0.00, Nucleated RBC % 0.0 09/27/21 04:42: Blood Type Recheck A NEGATIVE 09/26/21 21:03: Ferritin 41.6, Vitamin B12 594, Folate 6.52 09/26/21 21:03: Iron 125, TIBC 308, % Saturation 41, Transferrin 220 09/26/21 21:03: Troponin I High Sens 6.4 09/26/21 21:03: Sodium 133 L, Potassium 4.1, Chloride 99 L, Carbon Dioxide 23, Anion Gap 11.0, BUN 37 H, Creatinine 0.6, Estimated GFR (MDRD) 99, Glucose 148 H , Calcium 8.3 L, Total Bilirubin 0.7, AST 18, ALT 18, Alkaline Phosphatase 79, Total Protein 6.1 L, Albumin 3.6, Globulin 2.5, Albumin/Globulin Ratio 1.4, Lipase 48 09/26/21 21:03: PT 12.6, INR 1.1 09/26/21 21:03: WBC 11.9 H, RBC 3.21 L, Hgb 10.4 L, Hct 30.5 L, MCV 95.0, MCH 32.4 H, MCHC 34.1, RDW 13.0, Plt Count 392, MPV 7.7 L, Neut # (Auto) 9.6 H, Lymph # (Auto) 1.6, [place] # (Auto) 0.5, Eos # (Auto) 0.1, Baso # (Auto) 0.0, Absolute Nucleated RBC 0.00, Nucleated RBC % 0.0 09/26/21 21:03: Blood Type A NEGATIVE, Antibody Screen NEGATIVE, Crossmatch IS Only See Detail Lab results reviewed: Yes Fish Bones: 09/27/21 11:14 09/27/21 04:42 Home Medications and Allergies Home Medications: Ambulatory Orders Aspirin Chewable [[place] Aspirin] 81 mg PO DAILY 09/27/21 Cholecalciferol [Vitamin D3] 125 mcg PO DAILY 09/27/21 Mukul's Wort 300 mg PO DAILY 09/27/21 Vit C/E/Zn/Coppr/Lutein/Zeaxan [Preservision Areds 2 Chew Tab] 1 each PO DAILY 09/27/21 Active Medications Acetaminophen (Acetaminophen 325 Mg Tablet) 650 mg PO Q4HR PRN PRN Reason: Pain 1 to 4 Lactated Ringer's (Lr) 1,000 mls @ 100 mls/hr IV .Q10H [facility] Stop: 09/27/21 19:44 Last Admin: 09/27/21 11:27 Dose: 100 mls/hr Ondansetron HCl (Ondansetron Odt 4 Mg Tablet) 4 mg TL Q6HR PRN PRN Reason: Nausea / Vomiting Ondansetron HCl (Ondansetron 4 Mg/2 Ml Vial) 4 mg IVP Q6HR PRN PRN Reason: Nausea / Vomiting Pantoprazole Sodium (Pantoprazole 40 Mg Vial) 40 mg IVP BID [facility] Last Admin: 09/27/21 08:57 Dose: 40 mg Sodium Chloride (Sodium Chloride Flush 0.9% 10 Ml Syringe) 10 ml IVP PRN PRN PRN Reason: NEEDED PER PROVIDER ORDERS Sodium Chloride (Sodium Chloride Flush 0.9% 10 Ml Syringe) 10 ml IVP 0100,0900,1700 [facility] Last Admin: 09/27/21 08:57 Dose: 10 ml Thiamine HCl (Thiamine 100 Mg Tablet) 100 mg PO DAILY [facility] Last Admin: 09/27/21 08:58 Dose: 100 mg Atorvastatin [Lipitor] 20 mg PO QPM 06/10/21 Aspirin Chewable [[place] Aspirin] 81 mg PO DAILY 09/27/21 Cholecalciferol [Vitamin D3] 125 mcg PO DAILY 09/27/21 Mukul's Wort 300 mg PO DAILY 09/27/21 Vit C/E/Zn/Coppr/Lutein/Zeaxan [Preservision Areds 2 Chew Tab] 1 each PO DAILY 09/27/21 Allergies/Adverse Reactions: Allergies Allergy/AdvReac Type Severity Reaction Status Date / Time No Known Drug Allergies Allergy Verified 09/26/21 21:00 Anes History & Medical History - Anesthetic History Anesthesia Complications: reports: No previous complications Family history of Anesthesia Complications: Denies Family history of Malignant Hyperthermia: Denies - Medical History Cardiovascular: reports: None Pulmonary: reports: None Gastrointestinal: reports: Other (Occasional "gassiness" for which she takes an antacid) Urinary: reports: None Neuro: reports: None Musculoskeletal: reports: None Endocrine/Autoimmune: reports: None Blood Disorders: reports: None Skin: reports: None Smoking Status: Current every day smoker History of Cancer?: No Other Past Medical History: BRIDGE THAT DOES NOT COME OUT, CROWNS - Surgical History Eyes Ears Nose Throat (EENT): reports: Cataracts, Tonsil/Adenoidectomy Gynecologic: reports: Other Exam General: Alert, Oriented x3, Cooperative Dental: Dentures full Upper (perm bridge with multiple crowns) Mouth Openin Fingerbreadth Neck Mobility: Normal Mallampati classification: II Thyromental Distance: 4-6 cm Respiratory: Lungs clear, Normal breath sounds, No respiratory distress Cardiovascular: Regular rate Neurological: Normal speech Mental/Cognitive Status: Alert/Oriented X3, Normal for patient Cognitive Status: Within normal limits Plan Anesthesia Type: Total IV Consent for Procedure(s) Verified and Reviewed: Yes Code Status: Attempt Resuscitation ASA classification: 2-Mild systemic disease Is this case an emergency?: Yes
[2021-09-27] MEDS ORDERED: LIDOCAINE-MPF 2% 5 ML VIAL ONE (15:39)
[2021-09-27] MEDS ORDERED: PROPOFOL 200 MG/20 ML VIAL IVP ONE (15:39)
[2021-09-27 16:03] LABS: HCT - HEMATOCRIT 21.6 % (37.0-47.0); HGB - HEMOGLOBIN 7.6 g/dL (12.0-16.0)
[2021-09-27] MEDS ORDERED: BENZOCAINE/TETRACAINE/BUTAMBEN 20 GM TOP ONE (16:52)
[2021-09-27] MEDS ORDERED: PROPOFOL 500 MG/50 ML 500 MG/50 ML VIAL ONE (17:27)
--- NOTE | 2021-09-27 17:42 | ANESTHESIA POST OP EVALUATION ---
Anesthesia Post Eval - Post Anesthesia Eval Vitals: Last Vital Signs Temp 36.9 C 09/27/21 17:37 Pulse 98 09/27/21 17:37 Resp 19 09/27/21 17:32 BP 100/38 L 09/27/21 17:37 Pulse Ox 98 09/27/21 17:32 CV Function Including HR & BP: Stable Pain Control: Satisfactory Nausea & Vomiting: Negative Mental Status: Baseline Respiratory Status: Airway Patent Hydration Status: Satisfactory Anesthesia Complications: None
--- NOTE | 2021-09-27 18:47 | PROVIDER PROGRESS NOTE ---
Subjective - Prog Note Date Prog Note Date: 09/27/21 Prog Note Time: 18:49 - Subjective Subjective: She would like to eat now that she is come back from her endoscopy. She is not had any further emesis/hematemesis. She denies abdominal pain. Current Medications - Current Medications Current Medications: Active Medications Acetaminophen (Acetaminophen 325 Mg Tablet) 650 mg PO Q4HR PRN PRN Reason: Pain 1 to 4 Lactated Ringer's (Lr) 1,000 mls @ 100 mls/hr IV .Q10H [facility] Stop: 09/27/21 19:44 Last Admin: 09/27/21 11:27 Dose: 100 mls/hr Ondansetron HCl (Ondansetron Odt 4 Mg Tablet) 4 mg TL Q6HR PRN PRN Reason: Nausea / Vomiting Ondansetron HCl (Ondansetron 4 Mg/2 Ml Vial) 4 mg IVP Q6HR PRN PRN Reason: Nausea / Vomiting Pantoprazole Sodium (Pantoprazole 40 Mg Vial) 40 mg IVP BID [facility] Last Admin: 09/27/21 08:57 Dose: 40 mg Sodium Chloride (Sodium Chloride Flush 0.9% 10 Ml Syringe) 10 ml IVP PRN PRN PRN Reason: NEEDED PER PROVIDER ORDERS Sodium Chloride (Sodium Chloride Flush 0.9% 10 Ml Syringe) 10 ml IVP 0100,0900,1700 [facility] Last Admin: 09/27/21 15:58 Dose: Not Given Thiamine HCl (Thiamine 100 Mg Tablet) 100 mg PO DAILY [facility] Last Admin: 09/27/21 08:58 Dose: 100 mg Atorvastatin [Lipitor] 20 mg PO QPM 06/10/21 Aspirin Chewable [[place] He[place] Aspirin] 81 mg PO DAILY 09/27/21 Cholecalciferol [Vitamin D3] 125 mcg PO DAILY 09/27/21 [place] Wort 300 mg PO DAILY 09/27/21 Vit C/E/Zn/Coppr/Lutein/Zeaxan [Preservision Areds 2 Chew Tab] 1 each PO DAILY 09/27/21 Objective - Vital Signs/Intake & Output Reviewed Vital Signs: Yes Vital Signs: Vital Signs x48h Temp Pulse Pulse Resp BP BP Pulse Ox 09/27/21 17:37 36.9 C 98 100/38 L 100/38 L 09/27/21 17:32 99 19 89/45 L 98 09/27/21 15:50 36.5 C 97 20 137/63 H 97 09/27/21 12:51 36.8 C 116 H 16 138/65 H 100 Intake & Output: Intake & Output 09/24/21 09/25/21 09/26/21 09/27/21 23:59 23:59 23:59 23:59 Intake Total 1000 2450 Output Total 175 Balance 1000 2275 - Objective General Appearance: positive: No acute distress, Alert Eyes Bilateral: positive: PERRL, EOMI ENT: positive: Pharynx nml Neck: positive: No JVD. negative: Stiff neck Respiratory: positive: No respiratory distress. negative: Wheezes, Rales, Rhonchi Cardiovascular: positive: Regular rate & rhythm, Tachycardia. negative: Gallop/S4, Friction rub Abdomen: positive: Non-tender, No organomegaly, Nml bowel sounds, No distention Skin: positive: Warm, Dry, Pallor Extremities: positive: Full ROM Neurologic/Psychiatric: positive: Oriented x3, CN's nml (2-12), Motor nml - Lab Results Fish Bones: 09/27/21 16:00 09/27/21 04:42 Other Labs: Lab Results x24hrs 09/27/21 09/27/21 09/27/21 Range/Units 16:00 11:14 04:42 WBC (4.8-10.8) x10^3/uL RBC (4.20-5.40) 10^6/uL Hgb 7.6 L 8.0 L (12.0-16.0) g/dL Hct 21.6 L 22.2 L (37.0-47.0) % MCV (81.0-99.0) fL MCH (27.0-31.0) pg MCHC (32.0-36.0) g/dL RDW (12.0-15.0) % Plt Count (130-450) 10^3/uL MPV (7.9-10.8) fL Neut # (Auto) (1.5-6.6) 10^3/uL Lymph # (Auto) (1.5-3.5) 10^3/uL [place] # (Auto) (0.0-1.0) 10^3/uL Eos # (Auto) (0.0-0.7) 10^3/uL Baso # (Auto) (0.0-0.1) 10^3/uL Absolute Nucleated RBC x10^3/uL Nucleated RBC % /100WBC PT (9.9-12.6) secs INR (0.8-1.2) Sodium (135-145) mmol/L Potassium (3.5-5.0) mmol/L Chloride (101-111) mmol/L Carbon Dioxide (21-32) mmol/L Anion Gap (6-13) BUN (6-20) mg/dL Creatinine (0.4-1.0) mg/dL Estimated GFR (MDRD) (>89) Glucose (70-100) mg/dL Calcium (8.5-10.3) mg/dL Iron (28-170) ug/dL TIBC (250-450) ug/dL % Saturation (20-50) % Transferrin (192-382) mg/dL Ferritin (11.0-306.8) ng/mL Total Bilirubin (0.2-1.0) mg/dL AST (10-42) IU/L ALT (10-60) IU/L Alkaline Phosphatase (42-121) IU/L Troponin I High Sens (2.3-14.8) ng/L Total Protein (6.7-8.2) g/dL Albumin (3.2-5.5) g/dL Globulin (2.1-4.2) g/dL Albumin/Globulin Ratio (1.0-2.2) Lipase (22-51) U/L Vitamin B12 (180-914) pg/mL Folate (5.90 - >24.8) ng/mL Cortisol AM Sample 11.3 ug/dL SARS-CoV-2 (PCR) Blood Type Blood Type Recheck Antibody Screen Crossmatch IS Only 09/27/21 09/27/21 09/27/21 Range/Units 04:42 04:42 04:42 WBC 13.7 H (4.8-10.8) x10^3/uL RBC 2.56 L (4.20-5.40) 10^6/uL Hgb 8.2 L (12.0-16.0) g/dL Hct 23.5 L (37.0-47.0) % MCV 91.8 (81.0-99.0) fL MCH 32.0 H (27.0-31.0) pg MCHC 34.9 (32.0-36.0) g/dL RDW 12.9 (12.0-15.0) % Plt Count 343 (130-450) 10^3/uL MPV 8.1 (7.9-10.8) fL Neut # (Auto) 11.0 H (1.5-6.6) 10^3/uL Lymph # (Auto) 1.9 (1.5-3.5) 10^3/uL [place] # (Auto) 0.8 (0.0-1.0) 10^3/uL Eos # (Auto) 0.0 (0.0-0.7) 10^3/uL Baso # (Auto) 0.0 (0.0-0.1) 10^3/uL Absolute Nucleated RBC 0.00 x10^3/uL Nucleated RBC % 0.0 /100WBC PT (9.9-12.6) secs INR (0.8-1.2) Sodium 129 L (135-145) mmol/L Potassium 3.6 (3.5-5.0) mmol/L Chloride 99 L (101-111) mmol/L Carbon Dioxide 22 (21-32) mmol/L Anion Gap 8.0 (6-13) BUN 26 H (6-20) mg/dL Creatinine 0.5 (0.4-1.0) mg/dL Estimated GFR (MDRD) 122 (>89) Glucose 95 (70-100) mg/dL Calcium 7.8 L (8.5-10.3) mg/dL Iron (28-170) ug/dL TIBC (250-450) ug/dL % Saturation (20-50) % Transferrin (192-382) mg/dL Ferritin (11.0-306.8) ng/mL Total Bilirubin (0.2-1.0) mg/dL AST (10-42) IU/L ALT (10-60) IU/L Alkaline Phosphatase (42-121) IU/L Troponin I High Sens (2.3-14.8) ng/L Total Protein (6.7-8.2) g/dL Albumin (3.2-5.5) g/dL Globulin (2.1-4.2) g/dL Albumin/Globulin Ratio (1.0-2.2) Lipase (22-51) U/L Vitamin B12 (180-914) pg/mL Folate (5.90 - >24.8) ng/mL Cortisol AM Sample ug/dL SARS-CoV-2 (PCR) Blood Type Blood Type Recheck A NEGATIVE Antibody Screen Crossmatch IS Only 09/26/21 09/26/21 09/26/21 Range/Units 23:03 21:03 21:03 WBC (4.8-10.8) x10^3/uL RBC (4.20-5.40) 10^6/uL Hgb (12.0-16.0) g/dL Hct (37.0-47.0) % MCV (81.0-99.0) fL MCH (27.0-31.0) pg MCHC (32.0-36.0) g/dL RDW (12.0-15.0) % Plt Count (130-450) 10^3/uL MPV (7.9-10.8) fL Neut # (Auto) (1.5-6.6) 10^3/uL Lymph # (Auto) (1.5-3.5) 10^3/uL [place] # (Auto) (0.0-1.0) 10^3/uL Eos # (Auto) (0.0-0.7) 10^3/uL Baso # (Auto) (0.0-0.1) 10^3/uL Absolute Nucleated RBC x10^3/uL Nucleated RBC % /100WBC PT (9.9-12.6) secs INR (0.8-1.2) Sodium (135-145) mmol/L Potassium (3.5-5.0) mmol/L Chloride (101-111) mmol/L Carbon Dioxide (21-32) mmol/L Anion Gap (6-13) BUN (6-20) mg/dL Creatinine (0.4-1.0) mg/dL Estimated GFR (MDRD) (>89) Glucose (70-100) mg/dL Calcium (8.5-10.3) mg/dL Iron 125 (28-170) ug/dL TIBC 308 (250-450) ug/dL % Saturation 41 (20-50) % Transferrin 220 (192-382) mg/dL Ferritin 41.6 (11.0-306.8) ng/mL Total Bilirubin (0.2-1.0) mg/dL AST (10-42) IU/L ALT (10-60) IU/L Alkaline Phosphatase (42-121) IU/L Troponin I High Sens (2.3-14.8) ng/L Total Protein (6.7-8.2) g/dL Albumin (3.2-5.5) g/dL Globulin (2.1-4.2) g/dL Albumin/Globulin Ratio (1.0-2.2) Lipase (22-51) U/L Vitamin B12 594 (180-914) pg/mL Folate 6.52 (5.90 - >24.8) ng/mL Cortisol AM Sample ug/dL SARS-CoV-2 (PCR) NOT DETECTED Blood Type Blood Type Recheck Antibody Screen Crossmatch IS Only 09/26/21 09/26/21 09/26/21 Range/Units 21:03 21:03 21:03 WBC (4.8-10.8) x10^3/uL RBC (4.20-5.40) 10^6/uL Hgb (12.0-16.0) g/dL Hct (37.0-47.0) % MCV (81.0-99.0) fL MCH (27.0-31.0) pg MCHC (32.0-36.0) g/dL RDW (12.0-15.0) % Plt Count (130-450) 10^3/uL MPV (7.9-10.8) fL Neut # (Auto) (1.5-6.6) 10^3/uL Lymph # (Auto) (1.5-3.5) 10^3/uL [place] # (Auto) (0.0-1.0) 10^3/uL Eos # (Auto) (0.0-0.7) 10^3/uL Baso # (Auto) (0.0-0.1) 10^3/uL Absolute Nucleated RBC x10^3/uL Nucleated RBC % /100WBC PT 12.6 (9.9-12.6) secs INR 1.1 (0.8-1.2) Sodium 133 L (135-145) mmol/L Potassium 4.1 (3.5-5.0) mmol/L Chloride 99 L (101-111) mmol/L Carbon Dioxide 23 (21-32) mmol/L Anion Gap 11.0 (6-13) BUN 37 H (6-20) mg/dL Creatinine 0.6 (0.4-1.0) mg/dL Estimated GFR (MDRD) 99 (>89) Glucose 148 H (70-100) mg/dL Calcium 8.3 L (8.5-10.3) mg/dL Iron (28-170) ug/dL TIBC (250-450) ug/dL % Saturation (20-50) % Transferrin (192-382) mg/dL Ferritin (11.0-306.8) ng/mL Total Bilirubin 0.7 (0.2-1.0) mg/dL AST 18 (10-42) IU/L ALT 18 (10-60) IU/L Alkaline Phosphatase 79 (42-121) IU/L Troponin I High Sens 6.4 (2.3-14.8) ng/L Total Protein 6.1 L (6.7-8.2) g/dL Albumin 3.6 (3.2-5.5) g/dL Globulin 2.5 (2.1-4.2) g/dL Albumin/Globulin Ratio 1.4 (1.0-2.2) Lipase 48 (22-51) U/L Vitamin B12 (180-914) pg/mL Folate (5.90 - >24.8) ng/mL Cortisol AM Sample ug/dL SARS-CoV-2 (PCR) Blood Type Blood Type Recheck Antibody Screen Crossmatch IS Only 09/26/21 09/26/21 Range/Units 21:03 21:03 WBC 11.9 H (4.8-10.8) x10^3/uL RBC 3.21 L (4.20-5.40) 10^6/uL Hgb 10.4 L (12.0-16.0) g/dL Hct 30.5 L (37.0-47.0) % MCV 95.0 (81.0-99.0) fL MCH 32.4 H (27.0-31.0) pg MCHC 34.1 (32.0-36.0) g/dL RDW 13.0 (12.0-15.0) % Plt Count 392 (130-450) 10^3/uL MPV 7.7 L (7.9-10.8) fL Neut # (Auto) 9.6 H (1.5-6.6) 10^3/uL Lymph # (Auto) 1.6 (1.5-3.5) 10^3/uL [place] # (Auto) 0.5 (0.0-1.0) 10^3/uL Eos # (Auto) 0.1 (0.0-0.7) 10^3/uL Baso # (Auto) 0.0 (0.0-0.1) 10^3/uL Absolute Nucleated RBC 0.00 x10^3/uL Nucleated RBC % 0.0 /100WBC PT (9.9-12.6) secs INR (0.8-1.2) Sodium (135-145) mmol/L Potassium (3.5-5.0) mmol/L Chloride (101-111) mmol/L Carbon Dioxide (21-32) mmol/L Anion Gap (6-13) BUN (6-20) mg/dL Creatinine (0.4-1.0) mg/dL Estimated GFR (MDRD) (>89) Glucose (70-100) mg/dL Calcium (8.5-10.3) mg/dL Iron (28-170) ug/dL TIBC (250-450) ug/dL % Saturation (20-50) % Transferrin (192-382) mg/dL Ferritin (11.0-306.8) ng/mL Total Bilirubin (0.2-1.0) mg/dL AST (10-42) IU/L ALT (10-60) IU/L Alkaline Phosphatase (42-121) IU/L Troponin I High Sens (2.3-14.8) ng/L Total Protein (6.7-8.2) g/dL Albumin (3.2-5.5) g/dL Globulin (2.1-4.2) g/dL Albumin/Globulin Ratio (1.0-2.2) Lipase (22-51) U/L Vitamin B12 (180-914) pg/mL Folate (5.90 - >24.8) ng/mL Cortisol AM Sample ug/dL SARS-CoV-2 (PCR) Blood Type A NEGATIVE Blood Type Recheck Antibody Screen NEGATIVE Crossmatch IS Only See Detail ABX Reporting Has patient been on IV antibiotics over the past 48 hours?: No Assessment/Plan - Problem List (1) GI bleed Impression: The concern is for a GI bleed given her history of emesis and the fact that her reported it was quite dark. She is on aspirin and does drink alcohol on a daily basis. Her BUN is slightly increased as well. Her stool was negative for occult blood but this does not rule out a bleed. She is also anemic compared to just 3 months ago. We have placed her in observation status. We keep on rechecking her hemoglobin and she has gone from 10.4>> 8.2>> 8.0>> 8.6. She was mildly orthostatic this morning. Blood pressure went from 1 50-1 30 systolic. Pulse went from the 90s to the 100s with standing.General surgery has seen her. They did an EGD. Nothing was found. No source of bleeding. Plan: Continue to monitor acute blood loss anemia Most likely I am transfusing her since she is dropping and continues to be slightly tachycardic If she continues to drop her hemoglobin in spite of transfusion, General surgery feels that the next step would be transferring her to a higher level of care for angiogram and or pill endoscopy. (2) Acute blood loss Anemia Conclusion/Plan: She is anemic compared to 3 months ago and the concern is that this may be due to a GI bleed. Iron studies are not low. Iron is 125, TIBC 308, percent sa turation 41. Ferritin 41. B12 is normal at 594. Folate normal at 6.52. Plan is to transfuse her 1 unit and to continue to monitor. We will check retake count and LDH with her next CBC Qualifiers: Anemia type: unspecified type Qualified Code(s): D64.9 - Anemia, unspecified (3) Orthostatic hypotension Conclusion/Plan: Orthostatics this morning continue to show mild hypotension. But it is not se verely low. A.m. cortisol level was normal. We will continue to fluid resuscitate and transfuse and check blood pressure and pulse (4) Sinus tachycardia Conclusion/Plan: TSH was normal. Echocardiogram was mentioned on admission history and physical but not ordered. Will order for tomorrow.
[2021-09-27] MEDS: SODIUM CHLORIDE FLUSH 0.9% 10 ML SYRINGE IVP PRN (20:59)
[2021-09-28 00:16] LABS: HCT - HEMATOCRIT 24.6 % (37.0-47.0); HGB - HEMOGLOBIN 8.6 g/dL (12.0-16.0)
[2021-09-28] MEDS: SODIUM CHLORIDE FLUSH 0.9% 10 ML SYRINGE IVP SCH ×2 (00:43→08:58)
[2021-09-28 05:51] LABS: CALCIUM 8.3 mg/dL (8.5-10.3); CREATININE 0.5 mg/dL (0.4-1.0); POTASSIUM 3.3 mmol/L (3.5-5.0)
[2021-09-28 07:46] VITALS: BP 161/55
[2021-09-28] MEDS ORDERED: POTASSIUM CHLORIDE 20 MEQ TABLET PO ONE (07:55)
[2021-09-28] MEDS: PANTOPRAZOLE 40 MG VIAL IVP SCH (08:58)
[2021-09-28] MEDS: SODIUM CHLORIDE FLUSH 0.9% 10 ML SYRINGE IVP PRN (08:59)
[2021-09-28] MEDS: THIAMINE 100 MG TABLET PO SCH (09:03)
--- NOTE | 2021-09-28 09:22 | DISCHARGE SUMMARY ---
Discharge Summary Admit Date: 09/26/21 Discharge Date: 09/28/21 Discharging Provider: Vita Delgado Code Status: Do Not Attempt Resuscitation Condition at Discharge: Stable Discharge Disposition: 01 Home, Self Care - DIAGNOSES Admission Diagnoses: GI Bleed Anemia Orthostatic hypotension Sinus tachycardia Discharge Diagnoses with Status of Each Condition: GI Bleed: Acute. EGD was unremarkable. Patient will follow up with her primary care physician for referral for further work-up. Anemia: Etiology undetermined. Patient was transfused 2 units of packed red blood cells. Orthostatic hypotension: Acute. Improved/resolved with IV hydration and blood transfusion. Sinus tachycardia: Acute. Improved/resolved with IV hydration and blood transfusion. - HPI History of Present Illness: This is a 70-year-old female with a past medical history significant for hyperlipidemia who presents today complaining of dizziness and lightheadedness. She states that around 4 PM she started to develop abdominal gas. She went to go lay down on her bed and when she got up she felt quite dizzy and lightheaded so she returned again to her bed. She was then able to get up and go down to her living room but she continued to feel the dizziness and lightheadedness when sitting and so she called EMS. She states she felt faint at one point but was able to slowly get herself to her bed. She denies any syncope, chest pain, palpitations, dyspnea. She denies any similar episodes in the past. She does report that her noted that she vomited dark emesis prior to EMS arrival which he thought was blood. She believes it just may have been the coffee she was drinking earlier on the day. She states she normally drinks anywhere from 4 to 6 cups of coffee a day. Her last drink was 4 PM. She denies any history of bleeding in the past but reports that her stool is dark at times which she attributes to the chili and coffee she eats. She does drink 2 to 3 glasses of wine a day. She also takes a baby aspirin a day. She reports no cardiac history in the past including coronary artery disease, heart failure, or arrhythmia. She believes her primary care physician may have mentioned in the past that she is tachycardic at times but this was attributed to anxiety related to an office visit. She currently feels back to her baseline and denies any dizziness or lightheadedness. She has never had an endoscopy or colonoscopy. Here in our emergency department, she was given a liter of IV fluids as well as Protonix. She is noted to be anemic with a hemoglobin of 10 compared to her baseline of 14. Her stool was negative for occult blood but there was still clinical concern for emesis given the history and the fact that her mouth has what appears to be evidence of old blood. She was also noted to be orthostatic and persistently tachycardic in the 110s. Given the above findings, medicine was consulted for admission. We discussed goals of care and she would like to be a DNR. - ALLERGIES Allergies/Adverse Reactions: Allergies Allergy/AdvReac Type Severity Reaction Status Date / Time No Known Drug Allergies Allergy Verified 09/26/21 21:00 - MEDICATIONS Home Medications: Ambulatory Orders Medication Instructions Recorded Confirmed Atorvastatin [Lipitor] 20 mg PO QPM 06/10/21 09/27/21 Aspirin Chewable [St Hever 81 mg PO DAILY 09/27/21 09/27/21 Aspirin] Cholecalciferol [Vitamin D3] 125 mcg PO DAILY 09/27/21 09/27/21 Mukul's Wort 300 mg PO DAILY 09/27/21 09/27/21 Vit C/E/Zn/Coppr/Lutein/Zeaxan 1 each PO DAILY 09/27/21 09/27/21 [Preservision Areds 2 Chew Tab] - PHYSICAL EXAM AT DISCHARGE General Appearance: positive: No acute distress, Alert Eyes Bilateral: positive: PERRL, EOMI ENT: positive: No signs of dehydration Neck: positive: No JVD, Trachea midline Respiratory: positive: Chest non-tender, No respiratory distress, Breath sounds nml. negative: Wheezes, Rales, Rhonchi Cardiovascular: positive: Regular rate & rhythm, No murmur, No gallop Abdomen: positive: Non-tender, No organomegaly, Nml bowel sounds, No distention, Tenderness. negative: Guarding, Rebound Back: positive: Nml inspection Skin: positive: Color nml, No rash, Warm, Dry Extremities: positive: Non-tender, Full ROM, Nml appearance, No pedal edema Neurologic/Psychiatric: positive: Oriented x3, Mood/affect nml - LABS Result Diagrams: 09/27/21 16:00 09/28/21 04:59 - TIME SPENT Time Spent in Discharge (Minutes): 15
--- NOTE | 2021-09-28 09:28 | Discharge Plan ---
Discharge Plan Problem Reviewed?: Yes Disposition: Home, Self Care Condition: Stable Diet: Soft Activity Restrictions: Activity as Tolerated Health Concerns: You were admitted on 09/26/2021 with dizziness. There was concern for GI bleed because you had history of vomiting which has been reported as. You were initially observed And general surgery was consulted for an EGD when your hemoglobin dropped further. You were transfused 2 units of packed red blood cells. The EGD done did not reveal any findings to support your anemia. It was recommended that if your hemoglobin continues to drop further, you were to be transferred to another facility for higher level of care. You have requested to be discharged. You explained that you intend to reach out to your primary care physician with the [employer] system who will be able to get you to any subspecialist you would subsequently need. Consequently you are being discharged in stable condition. Should you experience dizziness again while at home or vomiting Blood or have a bowel movement which is dark, black or maroon in color, do not hesitate to seek medical attention again. You expressed understanding to this plan and are in agreement with it. No Smoking: If you smoke, Please STOP! Call for help. Follow-up with: Provider,Other [Primary Care Provider] -
== END 2021-09-28 11:21 | disposition home or self-care (01) | DRG 378 ==
LOC: EDUNIT# → ED 20:49 → MS2 23:01 → OBSVTOIN 09-28 07:39
PROVIDERS: ADMIT Internal Medicine; ATTEND Internal Medicine
PROC: 0DB78ZX Excision of Stomach, Pylorus, Via Natural or Artificial Opening Endoscopic, Diagnostic (ICD-10-PCS; principal; 2021-09-27 15:15)
DX: K29.51 Unspecified chronic gastritis with bleeding (principal); K92.2 Gastrointestinal hemorrhage, unspecified; D62 Acute posthemorrhagic anemia; I95.1 Orthostatic hypotension; Z20.822 Contact with and (suspected) exposure to COVID-19; R00.0 Tachycardia, unspecified; F17.210 Nicotine dependence, cigarettes, uncomplicated; E78.5 Hyperlipidemia, unspecified; Z79.82 Long term (current) use of aspirin; Z66 Do not resuscitate; K44.9 Diaphragmatic hernia without obstruction or gangrene
CPT/HCPCS: 36415; 36430; 43239; 80048; 80053; 82272; 82533; 82607; 82728; 82746; 83540; 83690; 84466; 84484; 85014; 85018; 85025; 85610; 86850; 86900; 86901; 86920; 87635; 93005; 96361; 96374; 96376; 99214; 99283; 99285; A9270; G0378; J7120; P9016

== ENCOUNTER 2021-12-15 11:11 | Outpatient (CLI) | payer MEDICARE, OTHER | END 2021-12-15 11:12 | disposition critical access hospital (66) | LOC: EMS 11:11 | DX: R06.02 Shortness of breath (principal); R53.83 Other fatigue; R05.9 Cough, unspecified | CPT/HCPCS: A0425; A0427 ==

== ENCOUNTER 2021-12-15 11:39 | Observation (INO) | payer MEDICARE, OTHER ==
[2021-12-15] MEDS ORDERED: IPRATROPIUM/ALBUTEROL 3 ML NEB INH STA (12:08)
[2021-12-15] MEDS ORDERED: methylPREDNISolone SUCCINATE 125 MG/2 ML VIAL IVP STA (12:08)
--- NOTE | 2021-12-15 12:10 | ED Physician Documentation ---
PD HPI DYSPNEA - Stated complaint Stated Complaint: SOA - Chief complaint Chief Complaint: Resp - Additional information Additional information: Patient is 71-year-old female presenting to the emergency department with shortness of breath. Reports 3 weeks worsening shortness of breath at home. Reports longstanding smoking history for greater than the last 50 years. Denies any history of asthma or COPD. Denies any chest pain. Does report history of recent hospitalization for GI bleed. States he is followed up with the [facility] and had a colonoscopy performed and since that time has had few stools with increased bowel gas. Denies abdominal pain. Denies blood in stool or bloody vomitus. Otherwise denies for any fever, chills, new rash, new weakness/numbness/tingling in any extremity. Review of Systems Ten Systems: 10 systems reviewed and negative Constitutional: denies: Fever Eyes: denies: Loss of vision Ears: denies: Loss of hearing Nose: denies: Rhinorrhea / runny nose Throat: denies: Dental pain / toothache Cardiac: denies: Chest pain / pressure Respiratory: reports: Dyspnea GI: denies: Abdominal Pain : denies: Dysuria Skin: denies: Rash Musculoskeletal: denies: Neck pain Neurologic: denies: Generalized weakness PD PAST MEDICAL HISTORY - Past Medical History Cardiovascular: High cholesterol Respiratory: None Neuro: None Endocrine/Autoimmune: None GI: None : None HEENT: Chronic vision loss Psych: None Musculoskeletal: None Derm: None - Past Surgical History 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 HEENT: Cataracts, Tonsil/Adenoidectomy - Present Medications Home Medications: Ambulatory Orders Medication Instructions Recorded Confirmed Atorvastatin [Lipitor] 20 mg PO QPM 06/10/21 12/15/21 Aspirin Chewable [St Hever 81 mg PO DAILY 09/27/21 12/15/21 Aspirin] Cholecalciferol [Vitamin D3] 125 mcg PO DAILY 09/27/21 12/15/21 Mukul's Wort 300 mg PO DAILY 09/27/21 12/15/21 Vit C/E/Zn/Coppr/Lutein/Zeaxan 1 each PO DAILY 09/27/21 12/15/21 [Preservision Areds 2 Chew Tab] - Allergies Allergies/Adverse Reactions: Allergies Allergy/AdvReac Type Severity Reaction Status Date / Time No Known Drug Allergies Allergy Verified 09/26/21 21:00 - Social History Does the pt smoke?: No Smoking Status: Current every day smoker Does the pt drink ETOH?: No Does the pt have substance abuse?: No - Immunizations Immunizations are current?: Yes PD ED PE NORMAL - Vitals Vital signs reviewed: Yes - General General: Alert and oriented X 3 - HEENT HEENT: Atraumatic - Neck Neck: Supple, no meningeal sign - Cardiac Cardiac: RRR - Respiratory Respiratory: Other (Patient has some prominent upper airway noises with her respiration. No wheezing appreciated. Does appear to be somewhat labored and using Accessory muscles.). 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, No motor deficit, No sensory deficit - Psych Psych: Normal mood, Normal affect Results - Vitals Vitals: Vital Signs - 24 hr 12/15/21 12/15/21 12/15/21 11:45 12:11 12:26 Temperature 36.9 C Heart Rate 120 H 122 H 127 H Respiratory 20 20 20 Rate Blood Pressure 176/100 H 176/88 H O2 Saturation 95 94 12/15/21 15:17 Temperature Heart Rate 131 H Respiratory 24 Rate Blood Pressure O2 Saturation 94 Oxygen O2 Source Room air - EKG (time done) 1155 Rate: Rate (enter#) (115) Rhythm: NSR [place]: Normal Intervals: Normal ND QRS: Normal Ischemia: Normal ST segments Computer interpretation: Agree with computer 1745 Rate: Rate (enter#) (143) Rhythm: NSR [place]: Normal Intervals: Normal ND QRS: Normal Ischemia: Normal ST segments Compare to prior EKG: Unchanged from prior EKG - Labs Labs: Laboratory Tests 12/15/21 12/15/21 12/15/21 12:16 12:16 12:16 WBC RBC Hgb Hct MCV MCH MCHC RDW Plt Count MPV Neut # (Auto) Lymph # (Auto) [place] # (Auto) Eos # (Auto) Baso # (Auto) Absolute Nucleated RBC Nucleated RBC % PT 13.4 H INR 1.2 D-Dimer > 1050.0 H VBG pH VBG pCO2 VBG pO2 VBG HCO3 VBG Total CO2 VBG O2 Saturation VBG Base Excess Sodium Potassium Chloride Carbon Dioxide Anion Gap BUN Creatinine Estimated GFR (MDRD) Glucose Lactic Acid 1.8 Calcium Magnesium 1.8 Total Bilirubin AST ALT Alkaline Phosphatase Troponin I High Sens B-Natriuretic Peptide Total Protein Albumin Globulin Albumin/Globulin Ratio Lipase Fluid Source Fluid Color Fluid Clarity Fluid WBC Fluid RBC Fluid Neutrophils % Fluid Lymphocytes % Fluid Monocytes % Fld Mesothelial Cell % Nasal Adenovirus (PCR) Nasal B. parapertussis DNA (PCR) Nasal Coronavir 229E PCR Nasal Coronavir HKU1 PCR Nasal Coronavir NL63 PCR Nasal Coronavir OC43 PCR Nasal Enterovir/Rhinovir PCR Nasal Influenza B PCR Nasal Influenza A PCR Nasal Parainfluen 1 PCR Nasal Parainfluen 2 PCR Nasal Parainfluen 3 PCR Nasal Parainfluen 4 PCR Nasal RSV (PCR) Nasal B.pertussis DNA PCR Nasal C.pneumoniae (PCR) Duarte Human Metapneumo PCR Nasal M.pneumoniae (PCR) Nasal SARS-CoV-2 (PCR) 12/15/21 12/15/21 12/15/21 12:16 12:16 12:16 WBC 12.5 H RBC 4.61 Hgb 14.4 Hct 41.6 MCV 90.2 MCH 31.2 H MCHC 34.6 RDW 12.6 Plt Count 374 MPV 8.3 Neut # (Auto) 10.6 H Lymph # (Auto) 1.1 L [place] # (Auto) 0.7 Eos # (Auto) 0.0 Baso # (Auto) 0.0 Absolute Nucleated RBC 0.00 Nucleated RBC % 0.0 PT INR D-Dimer VBG pH 7.394 VBG pCO2 42.3 VBG pO2 29.8 VBG HCO3 25.3 VBG Total CO2 26.6 VBG O2 Saturation 56.3 L VBG Base Excess 0.2 Sodium Potassium Chloride Carbon Dioxide Anion Gap BUN Creatinine Estimated GFR (MDRD) Glucose Lactic Acid Calcium Magnesium Total Bilirubin AST ALT Alkaline Phosphatase Troponin I High Sens B-Natriuretic Peptide 109 H Total Protein Albumin Globulin Albumin/Globulin Ratio Lipase Fluid Source Fluid Color Fluid Clarity Fluid WBC Fluid RBC Fluid Neutrophils % Fluid Lymphocytes % Fluid Monocytes % Fld Mesothelial Cell % Nasal Adenovirus (PCR) Nasal B. parapertussis DNA (PCR) Nasal Coronavir 229E PCR Nasal Coronavir HKU1 PCR Nasal Coronavir NL63 PCR Nasal Coronavir OC43 PCR Nasal Enterovir/Rhinovir PCR Nasal Influenza B PCR Nasal Influenza A PCR Nasal Parainfluen 1 PCR Nasal Parainfluen 2 PCR Nasal Parainfluen 3 PCR Nasal Parainfluen 4 PCR Nasal RSV (PCR) Nasal B.pertussis DNA PCR Nasal C.pneumoniae (PCR) Duarte Human Metapneumo PCR Nasal M.pneumoniae (PCR) Nasal SARS-CoV-2 (PCR) 12/15/21 12/15/21 12/15/21 12:16 12:16 12:20 WBC RBC Hgb Hct MCV MCH MCHC RDW Plt Count MPV Neut # (Auto) Lymph # (Auto) [place] # (Auto) Eos # (Auto) Baso # (Auto) Absolute Nucleated RBC Nucleated RBC % PT INR D-Dimer VBG pH VBG pCO2 VBG pO2 VBG HCO3 VBG Total CO2 VBG O2 Saturation VBG Base Excess Sodium 137 Potassium 3.4 L Chloride 96 L Carbon Dioxide 22 Anion Gap 19.0 H BUN 20 Creatinine 0.7 Estimated GFR (MDRD) 82 L Glucose 98 Lactic Acid Calcium 9.4 Magnesium Total Bilirubin 0.9 AST 28 ALT 16 Alkaline Phosphatase 98 Troponin I High Sens 6.5 B-Natriuretic Peptide Total Protein 7.0 Albumin 3.7 Globulin 3.3 Albumin/Globulin Ratio 1.1 Lipase 52 H Fluid Source Fluid Color Fluid Clarity Fluid WBC Fluid RBC Fluid Neutrophils % Fluid Lymphocytes % Fluid Monocytes % Fld Mesothelial Cell % Nasal Adenovirus (PCR) NOT DETECTED Nasal B. parapertussis DNA (PCR) NOT DETECTED Nasal Coronavir 229E PCR NOT DETECTED Nasal Coronavir HKU1 PCR NOT DETECTED Nasal Coronavir NL63 PCR NOT DETECTED Nasal Coronavir OC43 PCR NOT DETECTED Nasal Enterovir/Rhinovir PCR NOT DETECTED Nasal Influenza B PCR NOT DETECTED Nasal Influenza A PCR NOT DETECTED Nasal Parainfluen 1 PCR NOT DETECTED Nasal Parainfluen 2 PCR NOT DETECTED Nasal Parainfluen 3 PCR NOT DETECTED Nasal Parainfluen 4 PCR NOT DETECTED Nasal RSV (PCR) NOT DETECTED Nasal B.pertussis DNA PCR NOT DETECTED Nasal C.pneumoniae (PCR) NOT DETECTED Duarte Human Metapneumo PCR NOT DETECTED Nasal M.pneumoniae (PCR) NOT DETECTED Nasal SARS-CoV-2 (PCR) NOT DETECTED 12/15/21 17:20 WBC RBC Hgb Hct MCV MCH MCHC RDW Plt Count MPV Neut # (Auto) Lymph # (Auto) [place] # (Auto) Eos # (Auto) Baso # (Auto) Absolute Nucleated RBC Nucleated RBC % PT INR D-Dimer VBG pH VBG pCO2 VBG pO2 VBG HCO3 VBG Total CO2 VBG O2 Saturation VBG Base Excess Sodium Potassium Chloride Carbon Dioxide Anion Gap BUN Creatinine Estimated GFR (MDRD) Glucose Lactic Acid Calcium Magnesium Total Bilirubin AST ALT Alkaline Phosphatase Troponin I High Sens B-Natriuretic Peptide Total Protein Albumin Globulin Albumin/Globulin Ratio Lipase Fluid Source PLEURAL Fluid Color STRAW Fluid Clarity CLEAR Fluid WBC 464 Fluid RBC 5000 Fluid Neutrophils % 12 Fluid Lymphocytes % 76 Fluid Monocytes % 6 Fld Mesothelial Cell % 4 Nasal Adenovirus (PCR) Nasal B. parapertussis DNA (PCR) Nasal Coronavir 229E PCR Nasal Coronavir HKU1 PCR Nasal Coronavir NL63 PCR Nasal Coronavir OC43 PCR Nasal Enterovir/Rhinovir PCR Nasal Influenza B PCR Nasal Influenza A PCR Nasal Parainfluen 1 PCR Nasal Parainfluen 2 PCR Nasal Parainfluen 3 PCR Nasal Parainfluen 4 PCR Nasal RSV (PCR) Nasal B.pertussis DNA PCR Nasal C.pneumoniae (PCR) Duarte Human Metapneumo PCR Nasal M.pneumoniae (PCR) Nasal SARS-CoV-2 (PCR) Procedures - Thoracentesis Preparation: Consent obtained, Sterile prep and drape, Sitting Technique: Catheter over needle, Intercostal space - enter, Right, Ultrasound used Fluid: Cloudy, Sent for cell count, Sent for gram stain, Sent for culture, Sent for pH, Sent for LDH, Sent fluid:serum LDH, Sent fluid:serum protein, Sent for cytology Aftercare: CXR obtained, Other (1 cm apical PNX, oxygen therapy initiated) PD MEDICAL DECISION MAKING - ED course Complexity details: reviewed results, re-evaluated patient, d/w patient ED course: Patient is a 71-year-old female presenting to the emergency department with shortness of breath. This is a longstanding history of smoking. Patient infrequently seeks medical care and there is little other medical history available however she does report a hospitalization a few months ago for a GI bleed. Is found to be tachycardic and tachypneic in the emergency department however was maintaining adequate saturations on room air. She was given breathing treatments and methylprednisolone in order to treat for any possible COPD exacerbation that could be contributing to her symptoms. EKG is outlined above was negative for indications of acute cardiac ischemia or dysrhythmia. Labs obtained demonstrated a mild leukocytosis as well as an elevated D-dimer. CT PE protocol was obtained which showed a prominent right sided lung mass with possible compression to the superior vena cava as well as a very large right sided likely pleural effusion. All findings were communicated directly with the patient in the emergency department. Patient was consented for thoracentesis with the hope that relief of the pleural effusion would help her tachycardia and respiratory status. This was performed as outlined in procedure note. There was a 1 cm apical pneumothorax identified on postprocedure x-ray and patient was started on oxygen therapy here in the emergency department. She continues to have persistent low level tachycardia, general fatigue and a generally toxic appearance here in the emergency department. I did have a conversation with her about goals of care and advanced medical directives and she reports that she is not interested in biopsies, surgical intervention, radiation and that she would like to be "palliative care". I did discuss her care with the hospitalist serviceWho graciously agreed to admit the patient for further symptomatic management and treatment for her pneumothorax. Departure - Departure Disposition: ED Place in Observation Clinical Impression: Lung tumor, Pleural effusion, Acute pneumothorax Discharge Date/Time: 12/15/21 19:13
[2021-12-15 12:26] LABS: VBG BASE EXCESS 0.2 mmol/L (-2 - +2); VBG HCO3 25.3 mmol/L (23-28); VBG OXYGEN SATURATION 56.3 % (60-80); VBG PCO2 42.3 mmHg (41-51); VBG PH 7.394 (7.31-7.41); VBG PO2 29.8 mmHg (25-47); VBG TOTAL CO2 26.6 mmol/L (24-29)
[2021-12-15 12:38] LABS: INR 1.2 (0.8-1.2); PT - PROTHROMBIN TIME 13.4 secs (9.9-12.6)
[2021-12-15 12:45] LABS: D-DIMER > 1050.0 ng/mL (200.0-255.0)
[2021-12-15 12:59] LABS: BASOPHILS % (AUTO) 0.3 %; EOSINOPHILS % (AUTO) 0.2 %; HCT - HEMATOCRIT 41.6 % (37.0-47.0); HGB - HEMOGLOBIN 14.4 g/dL (12.0-16.0); LYMPHOCYTES # (AUTO) 1.1 10^3/uL (1.5-3.5); LYMPHOCYTES % (AUTO) 8.6 %; MEAN CORPUSCULAR HEMOGLOBIN 31.2 pg (27.0-31.0); MEAN CORPUSCULAR HGB CONC 34.6 g/dL (32.0-36.0); MEAN CORPUSCULAR VOLUME 90.2 fL (81.0-99.0); MEAN PLATELET VOLUME 8.3 fL (7.9-10.8); MONOCYTES # (AUTO) 0.7 10^3/uL (0.0-1.0); MONOCYTES % (AUTO) 5.6 %; NEUTROPHILS # (AUTO) 10.6 10^3/uL (1.5-6.6); NEUTROPHILS % (AUTO) 84.3 %; PLT - PLATELET COUNT 374 10^3/uL (130-450); RED BLOOD COUNT 4.61 10^6/uL (4.20-5.40); RED CELL DISTRIBUTION WIDTH 12.6 % (12.0-15.0); WHITE BLOOD COUNT 12.5 x10^3/uL (4.8-10.8)
[2021-12-15 13:20] LABS: ALBUMIN 3.7 g/dL (3.2-5.5); ALBUMIN/GLOBULIN RATIO 1.1 (1.0-2.2); BILIRUBIN,TOTAL 0.9 mg/dL (0.2-1.0); CALCIUM 9.4 mg/dL (8.5-10.3); CREATININE 0.7 mg/dL (0.4-1.0); POTASSIUM 3.4 mmol/L (3.5-5.0)
[2021-12-15] MEDS ORDERED: IOVERSOL 320 100 ML VIAL IVP ONE ×2 (13:25→20:31)
[2021-12-15 13:27] LABS: B. PARAPERTUSSIS- RESP PCR PAN NOT DETECTED; B. PERTUSSIS- RESP PCR PANEL NOT DETECTED; C. PNEUMONIAE- RESP PCR PANEL NOT DETECTED; CORONAVIRUS 229E-RESP PCR NOT DETECTED; CORONAVIRUS HKU1-RESP PCR NOT DETECTED; CORONAVIRUS NL63-RESP PCR NOT DETECTED; CORONAVIRUS OC43-RESP PCR NOT DETECTED; HUMAN METAPNEUMOVIRUS NOT DETECTED; INFLUENZA A- RESP PCR PANEL NOT DETECTED; INFLUENZA B - RESP PCR PANEL NOT DETECTED; M. PNEUMONIAE- RESP PCR PANEL NOT DETECTED; PARAINFLUENZA VIRUS 1 NOT DETECTED; PARAINFLUENZA VIRUS 2 NOT DETECTED; PARAINFLUENZA VIRUS 3 NOT DETECTED; PARAINFLUENZA VIRUS 4 NOT DETECTED; RHINOVIRUS/ENTEROVIRUS NOT DETECTED; RSV- RESP PCR PANEL NOT DETECTED; SARS-CoV-2 -RESP PCR PANEL NOT DETECTED
--- NOTE | 2021-12-15 14:08 | CT Report ---
PROCEDURE: ANGIO CHEST W/WO INDICATIONS: rule out PE CONTRAST: IV CONTRAST: Optiray 320 ml: 80 PO CONTRAST: *NO PO CONTRAST TECHNIQUE: After the administration of intravenous contrast, 2 mm axial images were acquired from the pulmonary apices to the posterior costophrenic angles during the arterial phase. In addition, 1 mm lung kernel and 5 mm soft tissue kernel reconstructions were performed. 3-dimensional coronal oblique maximum int ensity projection (MIP) reformats, 8 mm axial MIP, and 5 mm coronal and sagittal MPR reformats were t hen performed through the thorax. For radiation dose reduction, the following was used: automated exp osure control, adjustment of mA and/or kV according to patient size. COMPARISON: None FINDINGS: Image quality: Excellent. Pulmonary arteries: Pulmonary arteries are normal in size, and demonstrate no intraluminal filling d efects to suggest central pulmonary embolism. 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 The right upper lobe pulmonary artery is functiona lly extrinsically occluded by mass. Lungs and pleura: There is a spiculated nodule in the right apex which is consistent with bronchogeni c neoplasm measuring 1.7 cm. Reference image 33/7. There is a large multilobulated right pleural effu andres nearly surrounding the entirety of the right lung, consistent with malignant pleural effusion. T here is an extremely large malignant mediastinal mass. This encases and compresses the right main bro nchus and obstructs the right upper lobe bronchus. The right lung is mostly collapsed. Mediastinum: Heart size is normal, without pericardial effusion. There is an extremely large mediast inal mass. This includes an anterior mediastinal component, anterior to the superior vena cava, measu ring 4.8 x 5.6 cm. Posterior to the superior vena cava there is a component which encases the trachea , which on image 39/6 measures 7.0 x 7.1 cm. Thoracic inlet compresses and severely narrows the right main bronchus. The superior vena cava is significantly narrowed by the mass. It abuts the medial bor fredis of the transverse aorta and encases the right main bronchus and obstructs the right upper lobe br onchus. There is mediastinal shift to the left. Aorta is normal in caliber and enhancement. Esophagu s is normal in caliber, without hiatal hernia. Bones and chest wall: No suspicious bony lesions. Ribs and thoracic spine appear intact throughout. No axillary or supraclavicular adenopathy. Thyroid is grossly unremarkable. Abdomen: Visualized upper abdominal solid organs appear normal in the early arterial phase of enhanc ement. IMPRESSION: 1. No evidence acute pulmonary emboli. 2. 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 There is a relativ oriana small spiculated mass in the right upper lobe. There is remarkably extensive mediastinal mass whi ch encases the right main pulmonary artery, functionally obstructs the right upper lobe pulmonary art serg, severely compresses the superior vena cava, severely narrows the right main bronchus, and occlud es the right upper lobe bronchus. There is associated malignant pleural effusion. There is collapse o f most of the right lung. There is contralateral mediastinal shift. Reviewed by: Gaetano Kathleen MD on 12/15/2021 2:07 PM PDT Approved by: Gaetano Kathleen MD on 12/15/2021 2:07 PM PDT Station ID: [id number]
[2021-12-15] MEDS ORDERED: LIDOCAINE 1%-EPI 1:100000 20 ML MDV SUBQ STA (16:31)
[2021-12-15] MEDS ORDERED: LORazepam 2 MG/ML VIAL IVP STA (16:44)
[2021-12-15] MEDS ORDERED: lidocaine 1% 20 ML MDV ONE (16:49)
[2021-12-15] MEDS ORDERED: ONDANSETRON 4 MG/2 ML VIAL IVP PRN (18:15)
[2021-12-15] MEDS ORDERED: ACETAMINOPHEN 325 MG TABLET PO PRN (18:15)
[2021-12-15] MEDS ORDERED: ONDANSETRON ODT 4 MG TABLET TL PRN (18:15)
[2021-12-15] MEDS ORDERED: oxyCODONE 5 MG TABLET PO PRN (18:15)
[2021-12-15] MEDS ORDERED: SODIUM CHLORIDE FLUSH 0.9% 10 ML SYRINGE IVP PRN (18:15)
--- NOTE | 2021-12-15 18:17 | XRAY Report ---
PROCEDURE: Chest 1 View X-Ray INDICATIONS: Postthoracentesis TECHNIQUE: One view of the chest was acquired. COMPARISON: CT angiogram 12/15/2021 FINDINGS: Surgical changes and devices: None. Lungs and pleura: Hyperinflation chronic interstitial changes. Minimal blunting the right costophreni c angle noted. Mediastinum: Large mediastinal mass lesion noted, further described on CT chest report. Arch Bones and chest wall: No suspicious bony lesions. Overlying soft tissues appear unremarkable. IMPRESSION: Small right apical pneumothorax measures 1 cm to the thoracic apex. Small residual right pleural effusion. Large mediastinal mass lesion. Please refer to concurrent CT chest report. Note: Critical results were discussed with patients ER doc at 5:15 PM [place] time on 12/15/2021 Reviewed by: Trey Finley MD on 12/15/2021 5:16 PM AKDT Approved by: Trey Finley MD on 12/15/2021 5:16 PM AKDT Station ID: [id number]
[2021-12-15] MEDS ORDERED: SODIUM CHLORIDE 0.9% 500 ML IV STA (18:21)
[2021-12-15] MEDS: SODIUM CHLORIDE 0.9% 1,000 ML IV SCH (19:26)
--- NOTE | 2021-12-15 19:49 | HISTORY & PHYSICAL EXAMINATION ---
Chief Complaint - Chief Complaint Chief Complaint: Shortness of breath. History of Present Illness - Admitted From Admitted From:: Home - History Obtained From Records Reviewed: [facility] History obtained from: Patient, Spouse, Hospitalist - History of Present Illness HPI Comment/Other: This is a 71-year-old female with no significant past medical history who presents today complaining of shortness of breath. She is a little confused as she had received Ativan earlier but her and brother are present at bedside. Her tells me she has been short of breath for the past few weeks and it has really progressed over the past few days. The patient states she does not feel short of breath at rest but only with activity. She has had a nonproductive cough. No fevers or chills. She denies any chest pain. She does not had any lower extremity edema. She does report weight loss over the past year and a half but her states this has been intentional. He does report that she has had a poor appetite. The patient continues to smoke and has smoked half a pack to a pack a day for 51 years. 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 She will need thoracentesis with 4 L removed. Repeat chest x-ray showed a small apical pneumothorax. Given the above findings, medicine was consulted for admission. We discussed goals of care and she would like to be a DNR. History - Past Medical History Cardiovascular: reports: High cholesterol Respiratory: reports: None Neuro: reports: None Endocrine/Autoimmune: reports: None GI: reports: None BANQUET HOUSEPERSON: reports: None : reports: None HEENT: reports: Chronic vision loss Psych: reports: None Musculoskeletal: reports: None Derm: reports: None MRSA Hx?: No - Past Surgical History /BANQUET HOUSEPERSON: reports: Other HEENT: reports: Cataracts, Tonsil/Adenoidectomy - Family & Social History Family History Comment/Other: Her mother had a history of diabetes. Her father had a history of coronary artery disease and underwent a CABG. Living Situation: With spouse/s.o. Social History Notes: She lives at home with her spouse, Prince. She has smoked half a pack to a pack a day for 51 years. She drinks 2 glasses of wine a night. Meds/Allgy - Home Medications Home Medications: Ambulatory Orders Medication Instructions Recorded Confirmed Atorvastatin [Lipitor] 20 mg PO QPM 06/10/21 12/15/21 Aspirin Chewable [St Hever 81 mg PO DAILY 09/27/21 12/15/21 Aspirin] Cholecalciferol [Vitamin D3] 125 mcg PO DAILY 09/27/21 12/15/21 Mukul's Wort 300 mg PO DAILY 09/27/21 12/15/21 Vit C/E/Zn/Coppr/Lutein/Zeaxan 1 each PO DAILY 09/27/21 12/15/21 [Preservision Areds 2 Chew Tab] - Allergies Allergies/Adverse Reactions: Allergies Allergy/AdvReac Type Severity Reaction Status Date / Time No Known Drug Allergies Allergy Verified 09/26/21 21:00 Review of Systems - Constitutional Constitutional: reports: Poor appetite, Weight loss. denies: Fever, Chills, Malaise - Ears, Nose & Throat Ears, Nose & Throat: denies: Nasal discharge, Nasal congestion, Sore throat - Cardiovascular Cariovascular: reports: Exertional dyspnea, Decr. exercise tolerance. denies: Chest pain, Edema - Respiratory Respiratory: reports: Cough, SOB with exertion. denies: Sputum production, Hemoptysis, SOB at rest - Gastrointestinal Gastrointestinal: denies: Abdominal pain, Nausea, Vomiting - Genitourinary Genitourinary: denies: Dysuria, Frequency, Urgency, Hematuria - Musculoskeletal Musculoskeletal: denies: Muscle pain - Integumentary Integumentary: denies: Rash - Neurological Neurological: denies: General weakness, Focal weakness - Hematologic/Lymphatic Hematologic/Lymphatic: denies: Bleeding tendencies - All Other Systems All Other Systems: reports: Reviewed and negative Prior Level of Functionality: She is independent with her ADLs. Exam - Vital Signs Reviewed Vital Signs: Yes Vital Signs: Vital Signs x48h Temp Pulse Pulse Resp BP BP Pulse Ox 12/15/21 19:15 36.4 C L 135 H 18 140/86 H 98 12/15/21 18:34 36.5 C 137 H 24 151/85 H 98 12/15/21 18:18 146 H 28 H 106/79 95 12/15/21 15:17 131 H 24 94 12/15/21 12:26 127 H 20 12/15/21 12:11 122 H 20 176/88 H 94 - Physical Exam General Appearance: positive: No acute distress, Alert Eyes Bilateral: positive: Normal inspection, Conjunctivae nml ENT: positive: ENT inspection nml, Pharyngeal erythema Neck: positive: Nml inspection Respiratory: positive: No respiratory distress, Other (Diminished in right base.). negative: Wheezes, Rales Cardiovascular: positive: Tachycardia. negative: Irregularly irregular, Extrasystoles, Systolic murmur Abdomen: positive: Non-tender, No distention. negative: Tenderness Skin: positive: Warm, Dry Extremities: positive: No pedal edema Neurologic/Psychiatric: positive: Motor nml, Disoriented to time. negative: Disoriented to person, Disoriented to place, Facial droop, Slurred/abnml speech Conclusion/Plan - Problem List (1) Acute pneumothorax Conclusion/Plan: This occurred after the thoracentesis. It is a small pneumothorax. We will repeat a chest x-ray in the morning for further evaluation. We discussed briefly if she would want a chest tube or not but it seems that she is hesitant about this but we will discuss this further depending on the chest x-ray results. (2) Mediastinal mass Conclusion/Plan: This is evident on the CTA and is concerning for malignancy. There also appears to be evidence of metastatic disease given the right upper lobe mass as well. This mass is compressing the SVC and surrounding the pulmonary artery. Please see documented ACP note but in summary, we discussed the likely diagnosis and potential options including biopsy to consider treatment options. The patient has made it quite clear that she does not want any aggressive measures and does not want to pursue biopsy or further work-up. We will consult hospice as she prefers to go home. (3) Pleural effusion Conclusion/Plan: She had a large pleural effusion which is likely malignant due to the mediastinal mass. 4 L were removed in the emergency department. This was complicated by a small pneumothorax. We discussed that this can likely occur in the future given likely it was due to the mass. We discussed that she may benefit from a Pleurx catheter if this does reoccur. We will send pleural fluid study for cytology. (4) Confusion Conclusion/Plan: She is a little confused right now as she was confused and her and brother. They both state this is new for her and I suspect this may be related to the IV Ativan she received earlier on in the day. She has no focal deficits on exam. We did discuss obtaining a CT of the head to look for metastatic disease but given management would not change, we will hold off on this. We will hold all sedatives and monitor her overnight. (5) Sinus tachycardia Conclusion/Plan: This is likely due to the mediastinal mass and the large pleural effusion. We will monitor her vital signs to see if there is improvement now that she has had a thoracentesis. - Lab Results Lab results reviewed: Yes Fish Bones: 12/15/21 12:16 12/15/21 12:16 - Diagnostic Imaging Results Diagnostic Imaging Results: positive: Final report reviewed - EKG Results EKG Interpreted Independently: Yes EKG Findings: EKG reveals sinus tachycardia without evidence of ischemia. Core Measures - Anticipated LOS I expect patient to be DC'd or transferred within 96 hours.: Yes - Issues Hospital Issues and Management Plan: 71-year-old female presents with shortness of breath found of a large right pleural effusion and mediastinal mass. Had a small pneumothorax after thoracentesis we will be placed in observation for monitoring. - DVT/VTE - Prophylaxis VTE/DVT Device ordered at admit?: Yes
--- NOTE | 2021-12-15 20:50 | ADVANCE CARE PLANNING NOTE ---
Advance Care Planning - Planning Encounter Date: 12/15/21 Time: 20:10 Purpose: To discuss goals of care. Parties in Attendance: The patient, her , her brother, and myself Decisional Capacity of the Patient: She is a little confused but does have the capacity to make medical decisions. - Diagnosis for Encounter (1) Mediastinal mass Summary: She presents with shortness of breath and CT angiogram revealed a large right- sided pleural effusion and a mediastinal mass. Concern is for a malignant effusion. She underwent a thoracentesis with 4 L removed. This was complicated by a small pneumothorax and she is placed in observation for management of this. - Encounter Subjective/Patient's Story: The patient lives at home with her , Prince. She has smoked half a pack to a pack a day for 51 years and continues to smoke. She has been independent with her ADLs and has been doing well from a functional standpoint. Her tells me she has had decreased appetite and has had weight loss over the past year and a half although this was felt to be intentional. She now presents with worsening shortness of breath over the past few weeks. 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 She underwent a thoracentesis with 4 L removed. This was complicated by a small pneumothorax. The patient to her belief, was quite healthy prior to this and had been doing well. She saw her primary care physician once a year. Goals of Care: The patient has made it very clear she does not want any further work-up or any aggressive therapies. Her and brother are both at bedside and they both confirm that the patient has expressed this in the past. The patient does not want further work-up including biopsy and would prefer to go home on hospice. Her goal is to maximize her quality of life. Plan: She will be placed in observation for monitoring the pneumothorax. We will repeat chest x-ray in the morning. If the pneumothorax is stable then we can consider discharge to home on hospice. Family would like me with social work and a consult has been placed. We will also consult hospice. Additional Discussion: We discussed the findings of the CTA and that that mediastinal mass is most certainly malignant. We discussed that this is compressing the SVT and surrounds the pulmonary artery. We also discussed concern for metastatic disease given the right upper lobe mass and the large effusion. We discussed that we could pursue with obtaining a biopsy for definitive diagnosis and consideration of treatment options or transition to hospice if she does not wish to pursue any treatment. Code Status: Do Not Attempt Resuscitation Time spent on advance care plannin
[2021-12-16 00:31] LABS: CC,BF RBC 5000 /mm^3; CC,BF WBC 464 /mm^3
[2021-12-16] MEDS: SODIUM CHLORIDE FLUSH 0.9% 10 ML SYRINGE IVP SCH ×3 (00:59→16:37)
[2021-12-16 01:10] LABS: BF CLARITY CLEAR; BF COLOR STRAW; BF SOURCE PLEURAL; LYMPHOCYTES %,BODY FLUID 76 %; MESOTHELIAL %, BF 4 %; MONOCYTES %,BODY FLUID 6 %; NEUTROPHILS %, BF 12 %
[2021-12-16] MEDS: SODIUM CHLORIDE 0.9% 1,000 ML IV SCH (04:55)
--- NOTE | 2021-12-16 09:34 | XRAY Report ---
PROCEDURE: Chest 1 View X-Ray INDICATIONS: Follow up pneumothorax. TECHNIQUE: One view of the chest was acquired. COMPARISON: 12/16/2019 to FINDINGS: Surgical changes and devices: None. Lungs and pleura: Patient's no right apical pneumothorax appears slightly smaller in size compared to previous day and now measures 9 mm in clinical admission. Left lung is clear. No pleural effusion. N o definite focal infiltrate. Mediastinum: Tortuous thoracic aorta is again seen with aortic arch calcifications. Heart size is nor mal. Bones and chest wall: No suspicious bony lesions. Overlying soft tissues appear unremarkable. IMPRESSION: Interval minimal decrease in size of patient's known small right apical pneumothorax. Reviewed by: Patel England MD on 12/16/2021 9:33 AM PDT Approved by: Patel England MD on 12/16/2021 9:33 AM PDT Station ID: [id number]
--- NOTE | 2021-12-16 18:19 | PROVIDER PROGRESS NOTE ---
Subjective - Prog Note Date Prog Note Date: 12/16/21 Prog Note Time: 18:14 - Subjective Pt reports feeling: Improved Subjective: She is much more comfortable than last night. Able to lay on her back at about 40 degrees comfortably. No use of accessory muscles, and much calmer emotionally. Current Medications - Current Medications Current Medications: Active Medications Acetaminophen (Acetaminophen 325 Mg Tablet) 650 mg PO Q4HR PRN PRN Reason: Pain 1 to 4, or Fever Morphine Sulfate (Morphine 2 Mg/Ml Carpuject) 2 mg IVP Q2HR PRN PRN Reason: Pain 8 to 10 Ondansetron HCl (Ondansetron Odt 4 Mg Tablet) 4 mg TL Q6HR PRN PRN Reason: Nausea / Vomiting Ondansetron HCl (Ondansetron 4 Mg/2 Ml Vial) 4 mg IVP Q6HR PRN PRN Reason: Nausea / Vomiting Oxycodone HCl (Oxycodone 5 Mg Tablet) 5 mg PO Q4HR PRN PRN Reason: Pain 5 to 7 Sodium Chloride (Sodium Chloride Flush 0.9% 10 Ml Syringe) 10 ml IVP PRN PRN PRN Reason: NEEDED PER PROVIDER ORDERS Sodium Chloride (Sodium Chloride Flush 0.9% 10 Ml Syringe) 10 ml IVP 0100,0900, 1700 CECILIO Last Admin: 12/16/21 16:37 Dose: 5 ml Atorvastatin [Lipitor] 20 mg PO QPM 06/10/21 Aspirin Chewable [St Hever Aspirin] 81 mg PO DAILY 09/27/21 Cholecalciferol [Vitamin D3] 125 mcg PO DAILY 09/27/21 Mukul's Wort 300 mg PO DAILY 09/27/21 Vit C/E/Zn/Coppr/Lutein/Zeaxan [Preservision Areds 2 Chew Tab] 1 each PO DAILY 09/27/21 Objective - Vital Signs/Intake & Output Reviewed Vital Signs: Yes Vital Signs: Vital Signs x48h Temp Pulse Resp BP Pulse Ox 12/16/21 16:00 36.6 C 139 H 20 149/95 H 94 Intake & Output: Intake & Output 12/13/21 12/14/21 12/15/21 12/16/21 23:59 23:59 23:59 23:59 Intake Total 575 2808.333 Balance 575 2808.333 - Objective General Appearance: positive: No acute distress, Alert, Other (Elderly female who looks older than stated age, cachectic) Eyes Bilateral: positive: PERRL, EOMI ENT: positive: No signs of dehydration Neck: positive: No JVD. negative: Stiff neck Respiratory: positive: No respiratory distress, Rhonchi, Other (Dull right lung base). negative: Wheezes (But has prolonged end exhalation phase), Rales Cardiovascular: positive: Regular rate & rhythm, Systolic murmur. negative: Gallop/S4, Friction rub Abdomen: positive: Non-tender, No organomegaly, Nml bowel sounds, No distention Skin: positive: Warm, Dry, Pallor Extremities: positive: Full ROM. negative: No pedal edema Neurologic/Psychiatric: positive: Oriented x3, CN's nml (2-12), Motor nml - Lab Results Fish Bones: 12/15/21 12:16 12/15/21 12:16 Other Labs: Lab Results x24hrs 12/15/21 Range/Units 17:20 Fluid Source PLEURAL Fluid Color STRAW Fluid Clarity CLEAR Fluid WBC 464 /mm^3 Fluid RBC 5000 /mm^3 Fluid Neutrophils % 12 % Fluid Lymphocytes % 76 % Fluid Monocytes % 6 % Fld Mesothelial Cell % 4 % ABX Reporting Has patient been on IV antibiotics over the past 48 hours?: No Assessment/Plan - Problem List (1) Acute pneumothorax Impression: This occurred after the thoracentesis. It is a small pneumothorax. Repeat chest x-ray done this morning shows no progression. She is still stating she does not want a chest tube. She is much more comfortable today than she was yesterday. Please see below for long-term plans (2) Mediastinal mass Conclusion/Plan: This is evident on the CTA and is concerning for malignancy. There also appears to be evidence of metastatic disease given the right upper lobe mass as well. This mass is compressing the SVC and surrounding the pulmonary artery. Please see documented ACP note but in summary, and on admission we discussed the likely diagnosis and potential options including biopsy to consider treatment options. The patient has made it quite clear that she does not want any aggressive measures and does not want to pursue biopsy or further work-up. Plan: Hospice consult done today. She will be opened to hospice tomorrow in her home and will be discharged in the machinist helper from here. She did not want us to discuss this with her and her brother today. I explained to her that not a great idea considering she is good to be relying on them to take care of her. Nevertheless she said this is not a surprise to them and they will address the issues as they come forward when she gets home (3) Pleural effusion Conclusion/Plan: She had a large pleural effusion which is likely malignant due to the mediastinal mass. 4 L were removed in the emergency department. This was complicated by a small pneumothorax. We discussed that this can likely occur in the future given likely it was due to the mass. She does not need a Pleurx catheter. I will continue to look for the pleural fluid study for cytology results which may take 5-7 business days. The point will be moot in that this patient is going home with Hospice. (4) Confusion resolved Conclusion/Plan: She was confusion on admission, with respiratory distress, and quite uncomfortable. Overnight her respiratory status is stabilized. Today she is much more comfortable, at ease, and laying comfortably on her back. (5) Sinus tachycardia resolved Conclusion/Plan: This is likely due to the mediastinal mass and the large pleural effusion. Overnight she has improved. We will continue to give IV fluids until discharge.
[2021-12-16] MEDS: MORPHINE 2 MG/ML CARPUJECT IVP PRN (21:19)
[2021-12-17] MEDS: SODIUM CHLORIDE FLUSH 0.9% 10 ML SYRINGE IVP SCH ×2 (00:23→10:10)
[2021-12-17] MEDS ORDERED: LORazepam 1 MG TABLET PO PRN (09:31)
[2021-12-17] MEDS: MORPHINE 2 MG/ML CARPUJECT IVP PRN (10:11)
--- NOTE | 2021-12-17 10:16 | Discharge Plan ---
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 On top of that you have been having 3 weeks of progressive shortness of breath and your breathing very heavily, having fast heart rate, and struggling to just get a breath in. We found you to have a large amount of fluid in your right lung that was compressing your lung down and removed 4 L out of your lung space. 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 There is a large mass underneath your breastbone that is compressing the vein that returns blood from your body to your heart. This is making your heart work harder. You have told your brother and your that you do not want treatment for this. You would like to be made comfortable and at home. Plan of Treatment: You will be discharged to hospice service. They will help take care of you at home. Your brother and your will also take care of you and most likely you will need to hire private duty caregivers for a few days. Hospice will take over your care and will provide you with medications, and durable medical equipment to keep you comfortable at home until you pass away Care Goals: You do not want any active treatment for ongoing medical problems and wish to go home Assessment: Patient has vacillated between home or half-way facility. When it has been explained that she would be paying her own money for the group home she is opted to go home. No Smoking: If you smoke, Please STOP! Call for help. Follow-up with: JUJU VILLASENOR MD [Primary Care Provider] -
--- NOTE | 2021-12-17 10:29 | DISCHARGE SUMMARY ---
"Discharge Summary Admit Date: 12/15/21 Discharge Date: 12/17/21 Discharging Provider: Yumiko Gaines MD Primary Care Provider: Cherie Bowles MD ([facility]) Code Status: Do Not Attempt Resuscitation Condition at Discharge: Poor Discharge Disposition: 50 Hospice/Home DC/Xfer - DIAGNOSES Discharge Diagnoses with Status of Each Condition: 1. Acute respiratory failure with hypoxia secondary to #2 and #3 2. Pleural effusion right lung 3. Acute pneumothorax 4. Lung neoplasm uncertain behavior 5. Mediastinal mass 6. Acute confusion on admission resolved 7. Sinus tachycardia 8. anxiety disorder 9. Compressed superior vena cava - HPI History of Present Illness: This is a 71-year-old female with no significant past medical history who presents today complaining of shortness of breath. She is a little confused as she had received Ativan earlier but her and brother are present at bedside. Her tells me she has been short of breath for the past few weeks and it has really progressed over the past few days. The patient states she does not feel short of breath at rest but only with activity. She has had a nonproductive cough. No fevers or chills. She denies any chest pain. She does not had any lower extremity edema. She does report weight loss over the past year and a half but her states this has been intentional. He does report that she has had a poor appetite. The patient continues to smoke and has smoked half a pack to a pack a day for 51 years. 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 She will need thoracentesis with 4 L removed. Repeat chest x-ray showed a small apical pneumothorax. Given the above findings, medicine was consulted for admission. We discussed goals of care and she would like to be a DNR. - Past Medical History Cardiovascular: reports: High cholesterol Respiratory: reports: None Neuro: reports: None Endocrine/Autoimmune: reports: None GI: reports: None VICE PRESIDENT BIOSTATISTICS: reports: None : reports: None HEENT: reports: Chronic vision loss Psych: reports: None Musculoskeletal: reports: None Derm: reports: None MRSA Hx?: No - Past Surgical History /VICE PRESIDENT BIOSTATISTICS: reports: Other HEENT: reports: Cataracts, Tonsil/Adenoidectomy - CONSULTS | PROCEDURES Procedures: 1. Chest/thorax CT angiogram. No emboli. 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 Small spiculated mass in the right upper lobe but extensive mediastinal mass which encases the right main pulmonary artery, functionally obstructing the right upper lobe pulmonary artery, severely compressing the superior vena cava, severely narrowing the right main bronchus and occluding the right upper lobe bronchus. This is associated with a malignant pleural effusion. Collapse of most of the right lung. Contralateral mediastinal shift. 2. Chest x-ray before thoracentesis showed the concurrent findings on CT. 3. Chest x-ray after thoracentesis showed a small apical pneumothorax, and a follow-up chest x-ray decrease in right apical pneumothorax - HOSPITAL COURSE Hospital Course: She was placed in observation to make sure that her apical pneumothorax was getting any bigger. We also needed to start planning for goals of care depending on what she felt about her new news that was entirely unexpected with regards to lung cancer and a large mediastinal mass compressing her superior vena cava.Conversations were difficult at times because the patient wanted her and brother not to be made aware of her diagnosis but expected them to be part of the conversations and to take care of her. Social work and case management were involved extensively in trying to navigate this family dynamic. Eventually, both and brother were made aware of this condition. 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 This is led to compromise blood supply to lung, and respiratory distress. The thoracentesis did help substantially where 4 L were removed. She was adamant that she did not want therapy. She did not want biopsies, surgeries, chemotherapy, or pills to help her with her cancer. But there were times where she was severely anxious and anxiety would induce tachypnea and respiratory decompensation. She responded well to Ativan. She eventually decided to discharge to home with hospice.The night before discharge we asked if she wanted us to discuss all of this with her and her brother. She said that she did not want us to that she would discuss it with them. Hospice agreed to open the patient on the day of discharge. We just needed to dress biosecurity officer earlier in the day to make sure that a comfort kit and equipment could be delivered. This included oxygen. On the day of discharge she surprised all of us by adamantly denying that she never agreed to hospice. She wanted to go to a retirement and was angry that we were discharging her to home with hospice. She did not Want to discuss any of this with us until her and brother got to the hospital to pick her up. and brother finally came. The final decision was to transition her to hospice. At discharge, temperature was 36.3, she was very anxious, very angry and having problems breathing. She responded to 1 mg of Ativan sublingual. Blood pressure was 126/67. Respirations 20. She was 96% on 2 L nasal cannula. She was a thin cachectic 5 foot 2 female at 47 kg. Pursed lip breathing when she would get anxious. She had a dull right lung base. Prolonged and exhalation with quiet lung sounds but no outright wheezing. Use of accessory muscles was only when she was anxious. It took us close to 30 minutes of calming her down and getting her wheelchair to then get her through the lobby to be put in the car to go home. She had an irregular rate and rhythm. Abdomen had hypoactive bowel sound s was nontender. Greater than 30 minutes was spent coordinating discharge. Sent home with one of our oxygen tanks. Hospice will then set her up with their oxygen and the tank is to be brought back to the hospital. - ALLERGIES Allergies/Adverse Reactions: Allergies Allergy/AdvReac Type Severity Reaction Status Date / Time No Known Drug Allergies Allergy Verified 09/26/21 21:00 - MEDICATIONS Home Medications: Ambulatory Orders Medication Instructions Recorded Confirmed Acetaminophen [Tylenol] 650 mg PO Q4HR PRN tablet 12/17/21 LORazepam [Ativan] 1 mg PO Q6H PRN tablet 12/17/21 Ondansetron Odt [Zofran Odt] 4 mg TL Q6HR PRN tablet 12/17/21 - LABS Result Diagrams: 12/15/21 12:16 12/15/21 12:16"
[2021-12-17 10:31] VITALS: BP 126/67
[2021-12-17] MEDS ORDERED: LORazepam 0.5 MG TABLET SL PRN (10:52)
== END 2021-12-17 12:55 | disposition hospice, home (50) ==
LOC: EDUNIT# → ED 11:39 → MS2 18:15
PROVIDERS: ADMIT Internal Medicine; ATTEND Specialist
DX: J96.01 Acute respiratory failure with hypoxia (principal); J95.811 Postprocedural pneumothorax; D38.1 Neoplasm of uncertain behavior of trachea, bronchus and lung; J90 Pleural effusion, not elsewhere classified; R91.8 Other nonspecific abnormal finding of lung field; R41.0 Disorientation, unspecified; R00.0 Tachycardia, unspecified; F41.9 Anxiety disorder, unspecified; I87.1 Compression of vein; Z20.822 Contact with and (suspected) exposure to COVID-19; Z66 Do not resuscitate; F17.210 Nicotine dependence, cigarettes, uncomplicated
CPT/HCPCS: 32554; 36415; 71045; 71275; 80053; 82803; 82945; 83605; 83690; 83735; 83880; 84484; 85025; 85379; 85610; 87633; 89051; 93005; 94640; 96374; 96375; 99283; 99285; G0378; J2060; J8499; Q9967

== ENCOUNTER 2021-12-17 12:53 | Outpatient (CLI) | payer MEDICARE, OTHER | END 2021-12-17 12:54 | disposition home or self-care (01) | LOC: EMS 12:53 | PROVIDERS: ATTEND Specialist | DX: Z51.5 Encounter for palliative care (principal); C34.90 Malignant neoplasm of unspecified part of unspecified bronchus or lung; Z74.01 Bed confinement status | CPT/HCPCS: A0425; A0428 ==

== ENCOUNTER 2021-12-18 11:00 | Outpatient (CLI) | payer OTHER | END 2021-12-18 11:01 | disposition critical access hospital (66) | LOC: EMS 11:00 | DX: R06.02 Shortness of breath (principal) | CPT/HCPCS: A0425; A0429 ==

== ENCOUNTER 2021-12-18 11:30 | Emergency (ER) | payer MEDICARE, OTHER ==
[2021-12-18] MEDS ORDERED: IPRATROPIUM/ALBUTEROL 3 ML NEB INH STA (11:51)
[2021-12-18] MEDS ORDERED: MORPHINE 2 MG/ML CARPUJECT IVP STA (11:52)
--- NOTE | 2021-12-18 11:52 | ED Physician Documentation ---
PD HPI DYSPNEA - Stated complaint Stated Complaint: SOA - Chief complaint Chief Complaint: Resp - History obtained from History obtained from: Patient, EMS - History of Present Illness Timing - onset: How many weeks ago (Has had progressive dyspnea over the last several weeks. Most notable in last week and was seen in the ER 3 days ago and discharged yesterday diagnosed with new diagnoses lung cancer and mediastinal mass with effusion that was tapped with subsequent small pneumothorax.) Inciting event(s): Other (lung cancer with mediastinal mass diagnosed 3 days ago and hospitalized.). No: URI Improved by: Sitting up. No: O2 Worsened by: Exertion, Laying flat, Coughing Associated symptoms: Wheezing. No: Fever, Cough, Bilateral edema Similar symptoms before: Diagnosis (recently diagnosed with lung cancer/tumors. Had thoracentesis with small PTX. In hospitali 2 days and d/c yesterday.) Recently seen: Admitted (3 days ago with similar dyspnea but was worse at that time.), Other (Seen by hospice Dr. Noyola yesterday at home but the patient states was "not quite ready" and overwhelmed and so did not sign onto hospice at that time. She states she is ready now.) Review of Systems Constitutional: denies: Fever, Chills Nose: denies: Rhinorrhea / runny nose, Congestion Throat: denies: Sore throat Cardiac: denies: Chest pain / pressure, Palpitations, Pedal edema, Calf pain Respiratory: reports: Dyspnea, Cough, Wheezing GI: denies: Abdominal Pain, Nausea, Vomiting, Diarrhea Skin: denies: Rash Neurologic: reports: Generalized weakness. denies: Focal weakness, Confused, Headache Endocrine: reports: Weight loss Immunocompromised: denies: Immunocompromised PD PAST MEDICAL HISTORY - Past Medical History Cardiovascular: High cholesterol Respiratory: None Neuro: None Endocrine/Autoimmune: None GI: None SUPERVISORY EXAMINER: None : None HEENT: Chronic vision loss Psych: None Musculoskeletal: None Derm: None - Past Surgical History Past Surgical History: Yes /SUPERVISORY EXAMINER: Other HEENT: Cataracts, Tonsil/Adenoidectomy - Present Medications Home Medications: Ambulatory Orders Medication Instructions Recorded Confirmed Acetaminophen [Tylenol] 650 mg PO Q4HR PRN tablet 12/17/21 LORazepam [Ativan] 1 mg PO Q6H PRN tablet 12/17/21 Ondansetron Odt [Zofran Odt] 4 mg TL Q6HR PRN tablet 12/17/21 Albuterol Sulf [Ventolin Hfa 2 - 3 puffs INH Q4HR PRN #1 inhaler 12/18/21 Inhaler] LORazepam [Ativan] 1 mg PO BID PRN #10 tablet 12/18/21 dexAMETHasone [Decadron] 4 mg PO DAILY #7 tablet 12/18/21 oxyCODONE [Roxicodone] 5 mg PO Q6H PRN #20 tablet 12/18/21 - Allergies Allergies/Adverse Reactions: Allergies Allergy/AdvReac Type Severity Reaction Status Date / Time No Known Drug Allergies Allergy Verified 12/18/21 11:42 - Social History Does the pt smoke?: No Smoking Status: Current every day smoker Does the pt drink ETOH?: No Does the pt have substance abuse?: No - Immunizations Immunizations are current?: Yes PD ED PE NORMAL - Vitals Vital signs reviewed: Yes - General General: Alert and oriented X 3, Well developed/nourished, Other (Appears anxious. Also tachypneic. She is tachycardic but oxygenation is good on nasal cannula.) - HEENT HEENT: Pharynx benign - Neck Neck: Supple, no meningeal sign, No adenopathy - Cardiac Cardiac: No: RRR (tachycardic but regular. ) - Respiratory Respiratory: Other (tachypneic but no accessory muscle use. ). No: Clear bilaterally (mild coarse right base; mild diffuse exp wheezing and prolonged exp phase. ) - Abdomen Abdomen: Soft, Non tender - Derm Derm: Normal color, Warm and dry - Extremities Extremities: No tenderness to palpate, No edema, No calf tenderness / cord - Neuro Neuro: Alert and oriented X 3, No motor deficit, Normal speech Eye Opening: Spontaneous Motor: Obeys Commands Verbal: Oriented GCS Score: 15 Results - Vitals Vitals: Vital Signs - 24 hr 12/18/21 12/18/21 12/18/21 11:36 12:02 12:11 Temperature 36.5 C Heart Rate 142 H 140 H 138 H Respiratory 31 H 20 19 Rate Blood Pressure 110/64 111/83 H O2 Saturation 100 98 12/18/21 12/18/21 12/18/21 12:30 13:00 13:30 Temperature Heart Rate 136 H 142 H 138 H Respiratory 18 21 21 Rate Blood Pressure 103/78 130/93 H 111/75 O2 Saturation 98 92 100 12/18/21 12/18/21 12/18/21 13:36 14:00 14:30 Temperature Heart Rate 136 H 137 H 139 H Respiratory 18 24 16 Rate Blood Pressure 106/61 109/68 O2 Saturation 97 98 12/18/21 12/18/21 12/18/21 15:00 15:30 16:00 Temperature Heart Rate 144 H 140 H 139 H Respiratory 20 26 H 28 H Rate Blood Pressure 114/72 121/76 110/65 O2 Saturation 94 94 95 Oxygen O2 Source Nasal cannula Oxygen Flow Rate 6 - Labs Labs: Laboratory Tests 12/18/21 12/18/21 12/18/21 12:04 12:04 12:04 WBC 13.8 H RBC 4.41 Hgb 13.6 Hct 39.7 MCV 90.0 MCH 30.8 MCHC 34.3 RDW 12.7 Plt Count 325 MPV 8.1 Neut # (Auto) 12.1 H Lymph # (Auto) 0.9 L Beaver # (Auto) 0.7 Eos # (Auto) 0.0 Baso # (Auto) 0.0 Absolute Nucleated RBC 0.00 Nucleated RBC % 0.0 Sodium 133 L Potassium 3.8 Chloride 101 Carbon Dioxide 15 L Anion Gap 17.0 H BUN 20 Creatinine 0.6 Estimated GFR (MDRD) 99 Glucose 96 Calcium 9.3 Magnesium 1.9 Total Bilirubin 0.8 AST 28 ALT 15 Alkaline Phosphatase 78 B-Natriuretic Peptide 157 H Total Protein 6.6 L Albumin 3.2 Globulin 3.4 Albumin/Globulin Ratio 0.9 L Lipase 46 - Rads (name of study) chest xray Radiology: Prelim report reviewed (Right effusion and right lung mass similar to prior studies. Effusion is increased compared to postthoracentesis. No pneumothorax.), See rad report PD MEDICAL DECISION MAKING - ED course Complexity details: reviewed old records (Recent admission with chest CT scan that showed no PEs but did have tumors and masses.), re-evaluated patient (The patient had calmer appearance with still some tachypnea but no labored breathing and able to talk in sentences after some pain medicine and nebulizers. Oxygenation is 95 to 96% on 4 L nasal cannula decreased to 3 L and maintained.), considered differential, d/w patient ED course: She does have the recent CT scans showing no blood clots but lung tumors and mediastinal mass with some pressure on the airway and superior vena cava. This is probably given her a sensation of chest discomfort and impaired airflow. This did seem to improve with nebulizer treatments x2. Consideration would be some inflammatory component through the airways so we could try some steroid. She does have a fair anxiety component as well and did seem to improve with morphine and then hydromorphone IV. She had been prescribed lorazepam from her recent admission but her brother states the prescription was not at [facility] pharmacy yesterday. Discussed in which the patient and we collaborated on use of opioid pain medicines to help with some discomfort and pain as well as the anxiety. To that she could add lorazepam if needed for anxiety 2. She is interested now in the hospice. She states she just was not quite ready yesterday feeling overwhelmed. She will contact the hospice provider later or tomorrow to reschedule the intake appointment. Hopefully this will be in the next couple of days. I sent her prescriptions to [facility] pharmacy in [place]. Her chest x-ray showed some return of effusion on the right side but not enough to allow for repeat thoracentesis at this time. Departure - Departure Disposition: 01 Home, Self Care Clinical Impression: Dyspnea and respiratory abnormalities, Lung tumor, Mediastinal mass Condition: Stable Record reviewed to determine appropriate education?: Yes Instructions: ED Dyspnea Shortness of Breath Follow-Up: Macy Noyola MD [Provider Admit Priv/Credential] - Prescriptions: Albuterol Sulf [Ventolin Hfa Inhaler] 2 - 3 puffs INH Q4HR PRN #1 inhaler PRN Reason: Shortness Of Air/Wheezing LORazepam [Ativan] 1 mg PO BID PRN #10 tablet PRN Reason: Anxiety dexAMETHasone [Decadron] 4 mg PO DAILY #7 tablet oxyCODONE [Roxicodone] 5 mg PO Q6H PRN #20 tablet PRN Reason: Pain Comments: Continue with your home oxygen prescribed the other day. You can increase the rate to 3 L/min if that feels more comfortable than the 2. Use the albuterol inhaler 3 to 4 puffs 4 times daily regularly for the next week or 2 to help with your breathing. Decadron steroid for trying to improve any inflammation through the airway and lungs related to the tumors. See if these 2 interventions with the inhaler and steroid to help improve airflow. Oxycodone every 6 hours if needed for pain or trouble breathing. Add Tylenol every 4-6 hours if needed for pain as well. Lorazepam twice daily if needed for anxiety. Contact the hospice provider, Dr. Noyola, in the next couple of days for intake and to hospice. This will be the most beneficial to help you with your symptoms and other treatments. I transmitted your prescriptions to [facility] pharmacy and [place]. I am prescribing a short course of narcotic pain medication for you. These are potentially dangerous and addictive medications that should be used carefully. These medications may constipate you. Take an [id number] stool softener such as docusate twice daily with plenty of water while taking these medications. If you go 24 hours without a bowel movement, take [id number] MiraLAX, per package instructions. Do not drink or drive while taking these medications. If you received narcotic or sedating medications while in the emergency department do not drive for 24 hours. Store this medication in a safe, secure place and out of reach of children. It is a violation of federal law to give or sell this medication to another person or to use in a manner other than prescribed. The ED will not refill narcotic prescriptions, including prescriptions lost or stolen. You can dispose of unwanted medications at the [facility]'s office or at several pharmacies such as [facility].
[2021-12-18 12:08] LABS: BASOPHILS % (AUTO) 0.1 %; EOSINOPHILS % (AUTO) 0.1 %; HCT - HEMATOCRIT 39.7 % (37.0-47.0); HGB - HEMOGLOBIN 13.6 g/dL (12.0-16.0); LYMPHOCYTES # (AUTO) 0.9 10^3/uL (1.5-3.5); LYMPHOCYTES % (AUTO) 6.3 %; MEAN CORPUSCULAR HEMOGLOBIN 30.8 pg (27.0-31.0); MEAN CORPUSCULAR HGB CONC 34.3 g/dL (32.0-36.0); MEAN PLATELET VOLUME 8.1 fL (7.9-10.8); MONOCYTES # (AUTO) 0.7 10^3/uL (0.0-1.0); MONOCYTES % (AUTO) 4.9 %; NEUTROPHILS # (AUTO) 12.1 10^3/uL (1.5-6.6); PLT - PLATELET COUNT 325 10^3/uL (130-450); RED BLOOD COUNT 4.41 10^6/uL (4.20-5.40); RED CELL DISTRIBUTION WIDTH 12.7 % (12.0-15.0); WHITE BLOOD COUNT 13.8 x10^3/uL (4.8-10.8)
[2021-12-18 12:23] LABS: ALBUMIN 3.2 g/dL (3.2-5.5); ALBUMIN/GLOBULIN RATIO 0.9 (1.0-2.2); BILIRUBIN,TOTAL 0.8 mg/dL (0.2-1.0); CALCIUM 9.3 mg/dL (8.5-10.3); CREATININE 0.6 mg/dL (0.4-1.0); MAGNESIUM 1.9 mg/dL (1.7-2.8); POTASSIUM 3.8 mmol/L (3.5-5.0); TOTAL PROTEIN 6.6 g/dL (6.7-8.2)
--- NOTE | 2021-12-18 12:23 | XRAY Report ---
PROCEDURE: Chest 1 View X-Ray INDICATIONS: chest pain TECHNIQUE: One view of the chest was acquired. COMPARISON: Chest x-ray 12/16/2021 FINDINGS: Surgical changes and devices: None. Lungs and pleura: Mild to moderate right effusion, increased compared to prior exam. Mediastinum: Mediastinal contours appear normal. Heart size is normal. Bones and chest wall: No suspicious bony lesions. Overlying soft tissues appear unremarkable. IMPRESSION: Increased appearance of right effusion compared to 12/16/2021. Underlying areas of pneumonia and/or at electasis cannot be excluded. Reviewed by: Gunjan Diaz MD on 12/18/2021 12:22 PM PDT Approved by: Gunjan Diaz MD on 12/18/2021 12:22 PM PDT Station ID: [id number]
[2021-12-18] MEDS ORDERED: DEXAMETHASONE 10 MG/ML VIAL IVP STA (13:23)
[2021-12-18] MEDS ORDERED: ALBUTEROL NEB 2.5 MG/3 ML INH STA (13:23)
[2021-12-18] MEDS ORDERED: HYDROmorphone 0.5 MG/0.5 ML SYRINGE IVP STA (13:23)
[2021-12-18] MEDS ORDERED: SODIUM CHLORIDE 0.9% 1,000 ML IV STA (13:46)
[2021-12-18] MEDS ORDERED: LORazepam 1 MG TABLET PO STA (16:58)
[2021-12-18 17:08] VITALS: BP 118/86
== END 2021-12-18 17:19 | disposition home or self-care (01) ==
LOC: EDUNIT# → ED 11:30
DX: R06.09 Other forms of dyspnea (principal); C34.90 Malignant neoplasm of unspecified part of unspecified bronchus or lung; J98.59 Other diseases of mediastinum, not elsewhere classified; F17.200 Nicotine dependence, unspecified, uncomplicated
CPT/HCPCS: 36415; 71045; 80053; 83690; 83735; 83880; 85025; 93005; 94640; 96374; 96375; 99284; 99285; J1170; J8499

== ENCOUNTER 2021-12-18 23:33 | Outpatient (CLI) | payer OTHER | END 2021-12-18 23:34 | disposition critical access hospital (66) | LOC: EMS 23:33 | DX: R06.02 Shortness of breath (principal) | CPT/HCPCS: A0425; A0429 ==

== ENCOUNTER 2021-12-18 23:58 | Emergency (ER) | payer MEDICARE, OTHER ==
--- NOTE | 2021-12-19 00:01 | ED Physician Documentation ---
History of Present Illness - Stated complaint Stated Complaint: SOA, AGITATED, CA - History obtained from History obtained from: Family, EMS - History of Present Illness Timing: Today - Additonal information Additional information: BIBA. Per EMS report (and, later in stay, confirmed by family in ED at bedside) , patient had woken from sleep tonight agitated, gasping for breath, and family was unable to calm patient and thus called 911. Patient was admitted to [facility] 12/15/21 and was found to have CT findings as follows (per radiologist's reading): "Remarkably advanced malignant process involving the right lung and mediastinum. There is a relatively small spiculated mass in the right upper lobe. There is remarkably extensive mediastinal mass which encases the right main pulmonary artery, functionally obstructs the right upper lobe pulmonary artery, severely compresses the superior vena cava, severely narrows the right main bronchus, and occludes the right upper lobe bronchus. There is associated malignant pleural effusion. There is collapse of most of the right lung. There is contralateral mediastinal shift" She underwent thoracentesis in ED , small post-procedure pneumothorax was noted and patient was admitted for observation. During inpatient stay, a note from 12/15/[address] Call indicates patient was clearly expressing that she did not want further testing nor treatment for this condition. The plan was to d/c home with hospice to evaluate patient at home. Patient returned to ED earlier today (12/18/21) for dyspnea and anxiety, improved with lorazepam and dilaudid. Also given albuterol neb and decadron. Prescriptions provided for albuterol, decadron, roxicodone, and lorazepam. It is not clear if these were filled and whether they are being given at home. Patient has been evaluated by hospice but has not yet signed up for hospice; per previous notes, she initially said she needed time to process all of the information regarding her illness (the diagnosis of suspected lung cancer and large mediastinal mass have all been based on tests just obtained a few days ago). The visit earlier today indicates patient was ready to discuss hospice care, and there is a POLST form from the visit earlier today indicating DNR/comfort measures only. Review of Systems Unable to obtain: AMS PD PAST MEDICAL HISTORY - Past Medical History Cardiovascular: High cholesterol Respiratory: None Neuro: None Endocrine/Autoimmune: None GI: None HARBOUR MASTER: None : None HEENT: Chronic vision loss Psych: None Musculoskeletal: None Derm: None - Past Surgical History Past Surgical History: Yes /HARBOUR MASTER: Other HEENT: Cataracts, Tonsil/Adenoidectomy - Present Medications Home Medications: Ambulatory Orders Medication Instructions Recorded Confirmed Acetaminophen [Tylenol] 650 mg PO Q4HR PRN tablet 12/17/21 LORazepam [Ativan] 1 mg PO Q6H PRN tablet 12/17/21 Ondansetron Odt [Zofran Odt] 4 mg TL Q6HR PRN tablet 12/17/21 Albuterol Sulf [Ventolin Hfa 2 - 3 puffs INH Q4HR PRN #1 inhaler 12/18/21 Inhaler] LORazepam [Ativan] 1 mg PO BID PRN #10 tablet 12/18/21 dexAMETHasone [Decadron] 4 mg PO DAILY #7 tablet 12/18/21 oxyCODONE [Roxicodone] 5 mg PO Q6H PRN #20 tablet 12/18/21 - Allergies Allergies/Adverse Reactions: Allergies Allergy/AdvReac Type Severity Reaction Status Date / Time No Known Drug Allergies Allergy Verified 12/18/21 11:42 - Social History Does the pt smoke?: No Smoking Status: Current every day smoker Does the pt drink ETOH?: No Does the pt have substance abuse?: No - Immunizations Immunizations are current?: Yes PD ED PE NORMAL - Vitals Vital signs reviewed: Yes - General General: Other (initially patient arrives calm and follows commands, but within approximately 15 minutes of arrival, she is removing oxygen, agitated, trying to remove EKG leads. she says we took her oxygen off, refuses to keep it on) - HEENT HEENT: Other (tacky/pasty mucous membranes) - Cardiac Cardiac: No murmur - Abdomen Abdomen: Soft, Non tender - Extremities Extremities: No edema PD ED PE EXPANDED - Cardiac Cardiac: Tachy, Regular Rhythm - Respiratory Respiratory: Decreased breath sounds (right lower lung field) Results - Vitals Vitals: Vital Signs - 24 hr 12/19/21 12/19/21 12/19/21 00:13 01:23 02:22 Temperature Heart Rate 145 H 114 H 110 H Respiratory 25 H 14 20 Rate Blood Pressure 148/90 H 100/71 103/74 O2 Saturation 95 97 95 12/19/21 12/19/21 12/19/21 03:29 03:37 04:05 Temperature Heart Rate 107 H 108 H 111 H Respiratory 22 13 Rate Blood Pressure 106/72 106/72 99/75 O2 Saturation 97 96 96 12/19/21 12/19/21 12/19/21 04:11 05:53 06:57 Temperature 36.2 C L Heart Rate 108 H 110 H Respiratory 21 16 Rate Blood Pressure 98/58 L 98/66 O2 Saturation 97 98 12/19/21 08:00 Temperature Heart Rate 101 H Respiratory 11 L Rate Blood Pressure 77/47 L O2 Saturation 95 Oxygen O2 Source [employer] MEDICAL DECISION MAKING - ED course Complexity details: reviewed old records, re-evaluated patient, considered diffe rential, d/w family ED course: based on recent inpatient notes as well as EDMD note from earlier today, no tests performed at this time due to documentation that patient does not want any further testing nor treatment. Patient became agitated early in stay with tachypnea and removing oxygen mask; she is given lorazepam to help with anxiety and dilaudid for pain which resulted in her becoming calm and restful, keeping mask on and normal respiratory rate (I suspect the respiratory rate is at least partially due to her removing the mask resulting in difficulty breathing but anxiety component is likely playing a role as well). She had a second such episode later in ED stay but again responded well to 1mg IV lorazepam and 0.5mg IV dilaudid. I had a discussion with patient's brother , in ED at bedside. he says patient is unable to be properly cared for at home given the degree of agitation she exhibits, particularly with such sudden swings from calm to panicked and removing her oxygen and not responding to attempts to calm her. Patient's brother also expresses concern that patient's has been drinking alcohol and that this is a further concern for the extent of care and attention she can get at home. I contacted hospice nurse contractor buyer and discussed the case with Fabian Sarkar; patient is familar to her from recent evaluations. Cannot perform evaluation at this time due to patient being sedated from the medications and spouse reportedly being intoxicated. Plan is to reevaluate the situation in the morning and see if she can be evaluated by hospice during the day. Unfortunately there is no licensed social worker available today to consult for possible SNF placement. Care of patient turned over to Dr. Welch at end of my shift.
[2021-12-19] MEDS ORDERED: LORazepam 2 MG/ML VIAL IVP STA ×3 (00:15→06:10)
[2021-12-19] MEDS ORDERED: HYDROmorphone 1 MG/ML CARPUJECT IVP STA ×3 (00:16→06:10)
[2021-12-19] MEDS ORDERED: MORPHINE 2 MG/ML CARPUJECT IVP STA (07:42)
[2021-12-19] MEDS ORDERED: MORPHINE 2 MG/ML CARPUJECT IVP PRN (07:43)
[2021-12-19] MEDS ORDERED: SODIUM CHLORIDE 0.9% 1,000 ML IV STA (07:54)
[2021-12-19] MEDS ORDERED: ALBUTEROL NEB 2.5 MG/3 ML INH STA (07:54)
--- NOTE | 2021-12-19 08:29 | XRAY Report ---
PROCEDURE: Chest 1 View X-Ray INDICATIONS: chest pain TECHNIQUE: One view of the chest was acquired. COMPARISON: 12/18/2021 chest x-ray FINDINGS: Surgical changes and devices: None. Lungs and pleura: Increased, moderate right pleural effusion. Increased, severe right basilar pneumon ia/post obstructive phenomenon. Mediastinum: No change in mediastinal widening. No change in right hi lar mass. Heart size is normal. Bones and chest wall: No suspicious bony lesions. Overlying soft tissues appear unremarkable. IMPRESSION: 1. Increased, moderate right pleural effusion. 2. No change in mediastinal widening, consistent with adenopathy. 3. Increased right basilar pneumonia/post obstructive phenomenon. Reviewed by: Edmundo Abrams MD on 12/19/2021 8:27 AM PDT Approved by: Edmundo Abrams MD on 12/19/2021 8:27 AM PDT Station ID: [id number]
[2021-12-19] MEDS ORDERED: LORazepam 2 MG/ML VIAL IVP PRN (09:00)
[2021-12-19] MEDS ORDERED: CARBOXYMETHYLCELLULOSE OPHTH DROPS EACHEYE PRN (09:00)
[2021-12-19] MEDS ORDERED: OLANZapine ODT 5 MG TABLET TL PRN (09:00)
[2021-12-19] MEDS ORDERED: HYDROmorphone 0.5 MG/0.5 ML SYRINGE IVP PRN (09:00)
[2021-12-19 09:07] VITALS: BP 86/54
[2021-12-19] MEDS ORDERED: HYDROmorphone 0.5 MG/0.5 ML SYRINGE IVP SCH (11:00)
[2021-12-19] MEDS ORDERED: LORazepam 2 MG/ML VIAL IVP SCH (12:00)
--- NOTE | 2021-12-19 13:39 | ED Physician Documentation ---
ED Addendum - Addendum Addendum: 12/19/21 13:34I took over care of the patient on change of shift. She had been recently given repeat dose of lorazepam and hydromorphone so seemed relaxed at the time of my initial exam. X-ray shows a little bit difficult to arouse. Her oxygenation was maintaining above 90% on a partial rebreather mask. We did titrated down in case she did have an element of CO2 retention. The patient was approaching hospice care and at this point I limited much interventions or testing. I did do a chest x-ray to evaluate for recurrent pneumothorax. The right sided effusion was increased compared to x-ray yesterday but I would not really consider thoracentesis at this time. It is not as full as it was initially. No pneumothorax is seen at this time. The patient did have some agitation develop subsequently and was given 4 mg of morphine IV which tends to be the preferred medication with hospice. This did allow her to relax. She still was not verbally interacting much. There was some moderate work of breathing. The hospice nurse contacted last night did pass on the information to Dr. Awan who is oracle consultant for hospice today. He called and let us know he was on his way. Dr. Em subsequently arrived in the ER to evaluate the patient and talked with her and brother reportedly. Consensus was to intake the patient into hospice. Given the patient's significant symptoms of trouble breathing, hypoxia, altered mentation, Dr. Awan to admit the patient to the hospital under hospice general care. Condition: Poor Disposition: The patient is admitted to the hospital in the hospice service Diagnoses: 1. New diagnosis lung mass with metastases 2. Exacerbation COPD 3. Hypoxia and dyspnea 4. Anxiety due to trouble breathing
== END 2021-12-19 10:53 | disposition critical access hospital (66) ==
LOC: EDUNIT# → ED 23:58 → UNDOADMIN 12-19 09:00 → MS2 12-19 09:00 → ED 12-19 10:53
DX: R91.8 Other nonspecific abnormal finding of lung field (principal); C79.9 Secondary malignant neoplasm of unspecified site; J44.1 Chronic obstructive pulmonary disease with (acute) exacerbation; R09.02 Hypoxemia; F41.9 Anxiety disorder, unspecified; F17.200 Nicotine dependence, unspecified, uncomplicated; Z66 Do not resuscitate
CPT/HCPCS: 71045; 94640; 96374; 96375; 96376; J1170; J2060; 36415

== ENCOUNTER 2021-12-19 09:00 | Inpatient (IN) | payer OTHER ==
--- NOTE | 2021-12-19 11:40 | PHARMACY PROGRESS NOTE ---
- Best Possible Medication History Admit Date and Time: 12/19/21 0900 Processed by: Pharmacy Medication History completed: Yes Patient Interview: Pt unable to participate Secondary Source(s): Previous admit records As the person ultimately responsible for medication therapy, providers are able to order a medication from an existing home medication list in [facility] via the "Reconcile Routine" prior to Confirmation of that medication by health support specialist. Such practice is discouraged except when the physician, in their clinical judgment, deems that a medical need exists for a medication without regard to previous use.
[2021-12-19] MEDS ORDERED: OLANZapine ODT 5 MG TABLET TL PRN (11:55)
[2021-12-19] MEDS ORDERED: CARBOXYMETHYLCELLULOSE OPHTH DROPS EACHEYE PRN (12:22)
[2021-12-19] MEDS: LORazepam 2 MG/ML VIAL IVP SCH ×2 (13:31→19:15)
[2021-12-19] MEDS: HYDROmorphone 0.5 MG/0.5 ML SYRINGE IVP SCH ×4 (13:32→22:12)
[2021-12-19] MEDS: LORazepam 2 MG/ML VIAL IVP PRN ×2 (15:28→22:12)
[2021-12-19] MEDS: HYDROmorphone 0.5 MG/0.5 ML SYRINGE IVP PRN (20:49)
[2021-12-20] MEDS: HYDROmorphone 0.5 MG/0.5 ML SYRINGE IVP SCH ×5 (00:40→13:17)
[2021-12-20] MEDS: LORazepam 2 MG/ML VIAL IVP SCH ×4 (00:40→19:51)
[2021-12-20] MEDS: LORazepam 2 MG/ML VIAL IVP PRN ×2 (03:01→17:16)
[2021-12-20] MEDS: HYDROmorphone 0.5 MG/0.5 ML SYRINGE IVP PRN ×3 (04:12→17:16)
[2021-12-20] MEDS ORDERED: ONDANSETRON ODT 4 MG TABLET TL PRN (14:01)
[2021-12-20] MEDS: MORPHINE PCA 50 MG IV SCH (14:56)
[2021-12-20] MEDS ORDERED: MORPHINE 2 MG/ML CARPUJECT IVP PRN (19:18)
[2021-12-21] MEDS: LORazepam 2 MG/ML VIAL IVP SCH ×3 (00:09→13:46)
[2021-12-21] MEDS: MORPHINE PCA 50 MG IV SCH ×2 (00:22→15:32)
[2021-12-21 14:25] VITALS: BP 104/57
--- NOTE | 2021-12-22 06:40 | DISCHARGE SUMMARY ---
Discharge Summary Admit Date: 12/19/21 Discharge Date: 12/21/21 Code Status: Do Not Attempt Resuscitation Discharge Disposition: 20 - DIAGNOSES Admission Diagnoses: Metastatic lung cancer Discharge Diagnoses with Status of Each Condition: 1. Metastatic lung cancer w/vascular compression, airway occlusion, lung collapse, and malignant pleural effusion 2. Dyspnea d/t #1 3. Daily alcohol use w/o evidence of withdrawal 4. COPD w/o exacerbation - HPI History of Present Illness: Per Dr. Awan' H&P: patient is a 71-year-old female with long history of smoking admitted to the hospital earlier this week with acute shortness of air and anxiety. She was found to have a large right pleural effusion and had thoracentesis with removal of [address] imaging ruled out pulmonary embolus but she had a large mediastinal mass as well as right upper lobe mass compressing the superior vena cava and pulmonary artery. She was quite adamant she did not want further work-up or treatment. She declined any consideration of biopsy. Hospice was consulted and patient initially agreed to this but there was clearly a lot of communication difficulty between her and her, her and brother. She would agree to hospice then denied that she had done so. She did not want and brother to be told of her diagnosis but wanted them to help with decision-making. There clearly was great difficulty in arriving at the agreement to be discharged home with hospice. She was discharged on December 17 but when hospice went to admit her she declined. Yesterday she returned to the emergency room dyspneic, was treated and discharged but returned again last night, was very confused and dyspneic requiring opioids, lorazepam and nebulizers. Situation was complicated by her being intoxicated. She was finally made comfortable with opioids and lorazepam. When I was asked to see her this morning she appeared very comfortable but was not responsive to voice, gentle shaking or touch. - HOSPITAL COURSE Hospital Course: Pt recently was admitted to [facility] and found to have an extensive mediastinal mass associated w/vascular compression, airway occlusion, lung collapse and malignant pleural effusion. She underwent a thoracentesis but otherwise declined further treatment/diagnostics. She was discharged home with a plan for hospice admission on 12/17/21. Unfortunately, when hospice arrived for admission, she declined. She returned to the ED on 12/18 d/t uncontrolled symptoms and was ultimately discharged home. She again returned on 12/19 with uncontrolled symptoms. At that time, family agreed to hospice GIP admission. She was initiated on q3hr IV dilaudid w/good effect. Ultimately transitioned to morph ine infusion which was titrated for comfort. She peacefully on 12/21/21. - ALLERGIES Allergies/Adverse Reactions: Allergies Allergy/AdvReac Type Severity Reaction Status Date / Time No Known Drug Allergies Allergy Verified 12/18/21 11:42 - MEDICATIONS Home Medications: Ambulatory Orders Medication Instructions Recorded Confirmed Acetaminophen [Tylenol] 650 mg PO Q4HR PRN tablet 12/17/21 12/19/21 LORazepam [Ativan] 1 mg PO Q6H PRN tablet 12/17/21 12/19/21 Ondansetron Odt [Zofran Odt] 4 mg TL Q6HR PRN tablet 12/17/21 12/19/21 Albuterol Sulf [Ventolin Hfa 2 - 3 puffs INH Q4HR PRN #1 inhaler 12/18/21 12/19/21 Inhaler] LORazepam [Ativan] 1 mg PO BID PRN #10 tablet 12/18/21 12/19/21 dexAMETHasone [Decadron] 4 mg PO DAILY #7 tablet 12/18/21 12/19/21 oxyCODONE [Roxicodone] 5 mg PO Q6H PRN #20 tablet 12/18/21 12/19/21
== END 2021-12-21 19:11 | disposition expired | DRG 181 ==
LOC: MS2 09:00
PROVIDERS: ADMIT Family Medicine; ATTEND Family Medicine
DX: C34.90 Malignant neoplasm of unspecified part of unspecified bronchus or lung (principal); C79.9 Secondary malignant neoplasm of unspecified site; I87.1 Compression of vein; J91.0 Malignant pleural effusion; J98.19 Other pulmonary collapse; I28.8 Other diseases of pulmonary vessels; R06.09 Other forms of dyspnea; J44.9 Chronic obstructive pulmonary disease, unspecified; F17.210 Nicotine dependence, cigarettes, uncomplicated; Z66 Do not resuscitate; Z51.5 Encounter for palliative care
CPT/HCPCS: J1170; J2060